=== PATIENT | female | born 1965 | race African-American/Black ===

== ENCOUNTER → 2018-08-13 | Outpatient (CLI) | payer OTHER ==
[~2018-08-13] VITALS: Ht 167.6 cm; Wt 108.0 kg
[~2018-08-13] MED LIST: ASPIR 8181 MG PO; COREG25 MG PO; GLUCOPHAGE XR500 MG PO; HYDRALAZINE 2525 MG PO; IMDUR 30 MG TAB30 M1 PO; LASIX 40 MG TAB40 M2 PO; LEVEMIR FL100 UNIT/2 SUBQ; LISINOPRIL40 MG PO; LOVASTATIN40 MG PO; LYRICA 75 MG CA75 MG PO; PLAVIX 75 MG TA75 M1 PO; SPIRONOLACTONE25 M1 PO; TRULICITY1.5 MG/0.5 SUBQ
[2018-08-13 10:45] VITALS: BP 132/55
== END | disposition home or self-care (01) ==
LOC: SPEC 09:36
DX: I70.248 Atherosclerosis of native arteries of left leg with ulceration of other part of lower leg (principal); L97.929 Non-pressure chronic ulcer of unspecified part of left lower leg with unspecified severity; I70.1 Atherosclerosis of renal artery; I11.0 Hypertensive heart disease with heart failure; I50.9 Heart failure, unspecified; E11.9 Type 2 diabetes mellitus without complications; E78.00 Pure hypercholesterolemia, unspecified; Z98.890 Other specified postprocedural states; Z79.4 Long term (current) use of insulin; Z79.899 Other long term (current) drug therapy

== ENCOUNTER → 2018-11-20 | Outpatient (CLI) | payer OTHER ==
[~2018-11-20] VITALS: Ht 167.6 cm; Wt 108.0 kg
[~2018-11-20] MED LIST changes: +ADULT ASPIRIN R81 MG PO; +GENTAMICIN 0.15 CR TOP; +LISINOPRIL20 MG PO
[2018-11-20 08:20] VITALS: BP 150/57
[2018-11-20 08:24] LABS: HEMATOCRIT 33.4 % (37.0-47.0); HEMOGLOBIN 10.3 gm/dL (12.0-15.0); MCH 21.8 pg (26.0-34.0); MCHC 30.8 g/dL (28.0-37.0); MCV 70.7 fL (80.0-100.0); RBC 4.72 mil/uL (4.20-5.00); RDW 19.6 % (10.5-14.5); WBC 6.4 thou/uL (4.0-11.0)
[2018-11-20 08:33] LABS: ANION GAP 10 mmol/L (7-16); BUN 28 mg/dL (7-18); CALCIUM 10.2 mg/dL (8.5-10.1); CHLORIDE 105 mmol/L (98-107); CO2 23 mmol/L (21-32); CREATININE 1.2 mg/dL (0.6-1.0); GLUCOSE 148 mg/dL (74-106); POTASSIUM 4.3 mmol/L (3.5-5.1); SODIUM 138 mmol/L (136-145)
[2018-11-20 08:37] LABS: APTT 27.5 Seconds (24.5-32.8); PROTIME 10.2 Seconds (9.3-11.4)
[2018-11-20 10:43] LABS: ALBUMIN 3.5 g/dL (3.4-5.0); DIRECT BILIRUBIN < 0.1 mg/dL (<0.1-0.3); SGOT 19 U/L (15-37); SGPT 14 U/L (30-65); TOTAL BILIRUBIN 0.2 mg/dL (<0.1-1.0); TOTAL PROTEIN 8.7 g/dL (6.4-8.2)
--- NOTE | 2018-11-20 18:58 | CATHLAB ---
[facility] [place] [address] INVASIVE PROCEDURE REPORT Name: OLMAN PICHARDO Room #: REG ANETTE Romero#: [id number] Admission: 11/20/18 Attend Phys: Faraz Walker, Discharge: Date of : 63 Date of Service: 11/20/18 1858 Report #: [id number] THIS REPORT FOR: //name// APPROVED REPORT Study performed: 11/20/2018 08:59:53 Patient Details Patient Status: Out-Patient Room #: The patient is a 53 year-old female Event Personnel Faraz Walker Thermal Molder, Bridger Lynch RN RN, nOel Chen RTR Scrub, Vanessa Lopez RTR Monitor, Kayla Bonilla RTR, LOSS PREVENTION/SAFETY DISTRICT MANAGER Monitor, Joey Valenzuela RTR Scrub Procedures Performed Art Access - R femoral artery* Wilmer Access - R femoral vein Right and Left Heart Cath w/or w/o Coronarie [id number] [facility] Aortogram Abdominal Peripheral Angio 084759 Hemostasis w/ Mynx 22459 Initial Mod Sed Same Phys/QHP Gr5y 505204 71469 Mod Sed Same Phys/QHP Ea 552061 Indication Positive stress test Procedure Narrative The Right Groin^ was infiltrated with subcutaneous anesthesia. A PINNACLE 6FR Sheath #[id number] sheath was inserted into the RFA^. Coronary angiography was performed using coronary diagnostic catheters. The right coronary system was accessed and visualized with a JR4 catheter. The left coronary system was accessed and visualized with a JL4 catheter. The left ventricle was accessed and visualized with a Pigtail catheter. Left ventriculogram was performed in 30 degree projection. An aortogram of the abdominal aorta was performed. Pre-demployment femoral angiogram was performed . Closure device was deployed with a Fr MYNX CONTROL 6F/7F #[id number]. Hemostasis was obtained with manual pressure following sheath removal without any complications. The patient tolerated the procedure well and there were no complications associated with the procedure. There was no hematoma. Intraoperative Conscious Sedation Sedation start time: 9:21 Case end Time: 10:[address] [facility] [place] [address] [place] [address] INVASIVE PROCEDURE REPORT Name: OLMAN PICHARDO Room #: JOSE Romero#: [id number] Admission: 11/20/18 Attend Phys: Faraz Walker, Discharge: Date of : 63 Date of Service: 11/20/18 1858 Report #: [id number] Fentanyl 100 mcg Versed 2 mg Fluoro Time: 4.45 minutes Dose: DAP 8666.60 cGycm2 920 mGy Contrast Type and Amount: Visipaque 115 ml Hemodynamics The right atrial mean pressure is 16 mmHg. The right ventricular pressure is 74/2 mmHg. The pulmonary artery pressure is 64/29 mmHg with a mean of 43 mmHg. The mean pulmonary capillary wedge pressure is 33 mmHg. The aortic pressure is 175/67 mmHg with a mean of 68 mmHg. The left ventricular pressure is 172/9 mmHg with a mean of mmHg. The left ventricular end diastolic pressure is 22 mmHg. The cardiac output using thermo method is 4.07 L/min. The cardiac index using thermo method is 1.88 L/min/m2. Conclusion #1 successful right heart catheterization with cardiac output by thermodilution. See above hemodynamics. #2 normal left ventricular size with mid and basilar inferior hypokinesis EF 45% range #3 abdominal aortogram revealing no evidence renal arteries were patent. iliac system patent non-aneurysmal #4 moderate left main calcification mildly disease giving rise to LAD and circumflex distal left main has significant stenosis #5 ostial LAD calcified with significant stenosis remainder vessel is somewhat diseased and calcified. #6 circumflex OM also complex ostial disease involving distal left main calcification is heavy moderate size first and second OM vessels also diffusely diseased #7 dominant RCA is occluded Recommendations plan continue aggressive risk factor modification diuresis due to elevated pulmonary pressures. CV surgical consultation regarding revascularization by bypass. Complex nature of this disease and significant calcification young diabetic female best served with revascularization with arterial grafts. <ELECTRONICALLY SIGNED> By: Faraz Walker MD, FACC 11/20/181857 57 57 Faraz Walker MD, FACC /INF
[2018-11-21 00:07] LABS: GLYCOHEMOGLOBIN (HGB A1C) 6.6 % (4.8-5.6)
--- NOTE | 2018-11-21 18:05 | EKG ---
[facility] [place] [place] [address] ELECTROCARDIOGRAM REPORT Name: OLMAN PICHARDO [facility] [id number] Admission: 11/20/18 Attend Phys: Faraz Walker MD, Discharge: Date of : 63 Report #: [id number] THIS REPORT FOR: //name// [facility] Test Date: 2018-11-20 Test Time: 08:29:39 Pat Name: OLMAN PICHARDO Department: Room: Gender: F Bankruptcy Paralegal: Sebastian HERNANDEZ : 1965 Requested By: Faraz Walker Order Number: [id number] MD: Dl Churchill Measurements Intervals [place] Rate: 56 P: 89 AR: 247 QRS: -21 QRSD: 110 T: -20 QT: 481 QTc: 465 Interpretive Statements Sinus rhythm Prolonged AR interval LVH with IVCD and secondary repol abnrm No previous ECG available for comparison Electronically Signed On 11-21-2018 18:05:14 CDT by Dl Churchill [email or web address] <ELECTRONICALLY SIGNED> By: Dl Churchill MD, [facility] 11/21/18 1805 8 8 Dl Churchill MD, [facility] /EPI
--- NOTE | 2018-11-22 08:09 | HC ---
[facility] [place] [address] CONSULTATION Name: OLMAN PICHARDO Room #: REG REID ParrVerónica#: [id number] Admission: 11/20/18 Attend Phys: Faraz Walker MD, Discharge: Date of : 63 Report #: [id number] THIS REPORT FOR: //name// CC: Faraz Pyle DATE OF SERVICE: 11/20/2018 We were asked by Dr. Walker to see the patient. HISTORY OF PRESENT ILLNESS: The patient is a 53-year-old with 1-month history of shortness of breath. The shortness of breath seems to be exertional, but the exertion is relatively low level such as climbing stairs. The patient denies chest pain to me. There is a history of heart failure approximately 14 years ago. PAST MEDICAL HISTORY: Hypertension, hyperlipidemia, diabetes mellitus. The patient also has been treated for a left great toe ulcer and has had iliac and femoral stents placed in August or September by Dr. Sparrow. The patient is on Plavix in addition to aspirin, carvedilol, Trulicity, Lasix, hydralazine, Imdur, lisinopril, lovastatin, metformin, spironolactone, and gabapentin. ALLERGIES: None known. REVIEW OF SYSTEMS: Largely negative. GENERAL: No weight change, fever. EYES: Wears glasses. No recent vision change. ENT: No hearing loss. No sinus problems. CARDIAC: As mentioned shortness of breath. RESPIRATORY: Denies chronic cough, hemoptysis. GASTROINTESTINAL: No nausea, vomiting, blood. GENITOURINARY: No urgency, frequency, blood. SKIN: No rash or infection. We do note the ulceration, left great toe. MUSCULOSKELETAL: No bone or joint pain. NEUROLOGIC: Peripheral neuropathy positive. Denies motor weakness. HEMATOLOGIC: No anemia, no bruisability. FAMILY HISTORY: Mother in 60s from coronary artery disease, had stent. Father in 40s of enlarged heart. SOCIAL HISTORY: Former smoker, quit in 2003. . No alcohol, no drugs. PHYSICAL EXAMINATION: GENERAL: The patient is lying in bed after the heart cath, appears comfortable. VITAL SIGNS: Blood pressure 150/57, heart rate 56, respiratory rate 13, temperature ____. [facility] [address] [place] [address] CONSULTATION Name[facility] Room #: REG REID Keshav.#: [id number] Admission: 11/20/18 Attend Phys: Faraz Walker MD, Discharge: Date of : 63 Report #: [id number] HEENT: No scleral icterus, no arcus. NECK: No mass. Left cervical bruit audible. CHEST: Clear. HEART: Rhythm regular, no murmur. ABDOMEN: Soft, no mass, no tenderness. EXTREMITIES: Somewhat atrophic, left great toe ulcer bandaged. I do not feel popliteal or distal pulses. PSYCHIATRIC: The patient is very quiet with a bit of a flat affect, but answers questions appropriately and is oriented. SKIN: No other rash or infection. NEUROLOGIC: No obvious motor or sensory dysfunction. MUSCULOSKELETAL: No bone or joint asymmetry or deformity. ASSESSMENT: Cardiac catheterization showed a 3-vessel disease with total occlusion of the right coronary and high-grade LAD and circumflex lesions. Left ventricular function mildly reduced. Echo shows an ejection fraction of 40%. I have reviewed the case with Dr. Walker and in view of the patient's diabetes, we recommend coronary artery bypass surgery. The risks and details of this were discussed. Options and alternatives were reviewed. Risks include but are not limited to bleeding, infection, anesthesia risks, heart and lung problems, stroke and . The patient understands all of this and wishes to proceed. We will try to arrange surgery for next . Thank you for the consult. <ELECTRONICALLY SIGNED> By: Cody Murrieta MD 11/22/18 0809 1442 0210 Cody Murrieta MD /nt
== END | disposition home or self-care (01) ==
LOC: CATH 07:43
PROVIDERS: Internal Medicine Cardiovascular Disease; Surgery Vascular Surgery
DX: I25.10 Atherosclerotic heart disease of native coronary artery without angina pectoris (principal); I65.23 Occlusion and stenosis of bilateral carotid arteries; I11.0 Hypertensive heart disease with heart failure; I50.9 Heart failure, unspecified; I42.9 Cardiomyopathy, unspecified; E11.9 Type 2 diabetes mellitus without complications; I73.9 Peripheral vascular disease, unspecified; E78.00 Pure hypercholesterolemia, unspecified; E66.09 Other obesity due to excess calories; Z79.4 Long term (current) use of insulin; Z87.891 Personal history of nicotine dependence; Z98.890 Other specified postprocedural states; Z79.899 Other long term (current) drug therapy; Z01.818 Encounter for other preprocedural examination

== ENCOUNTER 2018-11-27 05:55 | Inpatient (IN) | payer OTHER ==
[2018-11-21 14:56] LABS: ABSOLUTE NEUTROPHILS 4.3 thou/uL (1.4-8.2); BASOPHILS 0.3 % (0.0-2.0); HEMATOCRIT 32.5 % (37.0-47.0); HEMOGLOBIN 10.3 gm/dL (12.0-15.0); LYMPHOCYTES 25.1 % (24.0-44.0); MCH 22.1 pg (26.0-34.0); MCHC 31.6 g/dL (28.0-37.0); MCV 69.9 fL (80.0-100.0); MONOCYTES 7.5 % (1.0-8.0); PLATELET COUNT 315 thou/uL (150-400); POLYS 65.1 % (36.0-66.0); RBC 4.65 mil/uL (4.20-5.00); RDW 19.9 % (10.5-14.5); WBC 6.5 thou/uL (4.0-11.0)
[2018-11-21 14:57] LABS: URINE BILIRUBIN NEGATIVE (Negative); URINE BLOOD NEGATIVE (Negative); URINE CLARITY CLEAR; URINE COLOR YELLOW; URINE GLUCOSE-RANDOM* NEGATIVE (Negative); URINE KETONES NEGATIVE (Negative); URINE LEUKOCYTES-REFLEX NEGATIVE (Negative); URINE NITRITE-REFLEX NEGATIVE (Negative); URINE PROTEIN (DIPSTICK) NEGATIVE (Negative); URINE UROBILINOGEN 0.2 E.U./dl (0.2-1.0)
[2018-11-21 15:16] LABS: ANISOCYTOSIS 1+; HYPOCHROMASIA 1+; MICROCYTES 1+
[~2018-11-27] VITALS: Ht 167.6 cm; Wt 107.7 kg
[~2018-11-27 05:55] MED LIST changes: -GENTAMICIN 0.15 CR TOP
[2018-11-27 07:50] VITALS: BP 115/94
[2018-11-27 13:57] LABS: MCH 22.2 pg (26.0-34.0); WBC 4.8 thou/uL (4.0-11.0)
[2018-11-27 13:58] LABS: MCHC 31.5 g/dL (28.0-37.0); MCV 70.5 fL (80.0-100.0); RBC 2.69 mil/uL (4.20-5.00); RDW 18.8 % (10.5-14.5)
[2018-11-27 14:00] LABS: HEMATOCRIT 18.9 % (37.0-47.0)
[2018-11-27 14:12] LABS: APTT 25.9 Seconds (24.5-32.8); FIBRINOGEN 195.4 mg/dL (210-360); PROTIME 15.4 Seconds (9.3-11.4)
[2018-11-27 14:13] LABS: INR 1.5
[2018-11-27 14:55] LABS: POC BE -2 mmol/L (-2.0 to +3.0); POC CA IONIZED 4.6 mg/dL (4.5-5.3); POC GLUCOSE 137 mg/dL (70-99); POC HCO3 23.3 mmol/L (22.0-26.0); POC HEMOGLOBIN 6.8 g/dL (12.0-15.0); POC POTASSIUM 4.4 mmol/L (3.5-5.1); POC SODIUM 142 mmol/L (136-145); POC pCO2 40.4 mmHg (35.0-45.0); POC pH 7.369 (7.360-7.450)
[2018-11-27 14:55] LABS: POC BE -1 mmol/L (-2.0 to +3.0); POC CA IONIZED 4.8 mg/dL (4.5-5.3); POC GLUCOSE 114 mg/dL (70-99); POC HCO3 25.3 mmol/L (22.0-26.0); POC HEMOGLOBIN 8.2 g/dL (12.0-15.0); POC POTASSIUM 4.1 mmol/L (3.5-5.1); POC SODIUM 145 mmol/L (136-145); POC pCO2 50.9 mmHg (35.0-45.0); POC pH 7.305 (7.360-7.450)
[2018-11-27 14:55] LABS: POC BE 2 mmol/L (-2.0 to +3.0); POC CA IONIZED 5.3 mg/dL (4.5-5.3); POC GLUCOSE 134 mg/dL (70-99); POC HCO3 25.6 mmol/L (22.0-26.0); POC HEMOGLOBIN 6.8 g/dL (12.0-15.0); POC POTASSIUM 3.8 mmol/L (3.5-5.1); POC SODIUM 146 mmol/L (136-145); POC pH 7.472 (7.360-7.450)
[2018-11-27 14:55] LABS: POC BE -1 mmol/L (-2.0 to +3.0); POC CA IONIZED 4.7 mg/dL (4.5-5.3); POC GLUCOSE 135 mg/dL (70-99); POC HCO3 23.6 mmol/L (22.0-26.0); POC HEMOGLOBIN 7.8 g/dL (12.0-15.0); POC POTASSIUM 4.1 mmol/L (3.5-5.1); POC SODIUM 146 mmol/L (136-145); POC pCO2 39.5 mmHg (35.0-45.0); POC pH 7.385 (7.360-7.450)
[2018-11-27 14:55] LABS: POC BE 0 mmol/L (-2.0 to +3.0); POC CA IONIZED 4.9 mg/dL (4.5-5.3); POC GLUCOSE 84 mg/dL (70-99); POC HCO3 24.7 mmol/L (22.0-26.0); POC HEMOGLOBIN 9.2 g/dL (12.0-15.0); POC POTASSIUM 3.4 mmol/L (3.5-5.1); POC SODIUM 145 mmol/L (136-145); POC pCO2 38.1 mmHg (35.0-45.0); POC pH 7.419 (7.360-7.450)
[2018-11-27 14:55] LABS: POC BE -3 mmol/L (-2.0 to +3.0); POC CA IONIZED 4.9 mg/dL (4.5-5.3); POC GLUCOSE 124 mg/dL (70-99); POC HCO3 21.1 mmol/L (22.0-26.0); POC HEMOGLOBIN 8.8 g/dL (12.0-15.0); POC POTASSIUM 3.8 mmol/L (3.5-5.1); POC SODIUM 147 mmol/L (136-145); POC pCO2 31.2 mmHg (35.0-45.0); POC pH 7.438 (7.360-7.450)
[2018-11-27 14:55] LABS: POC BE -1 mmol/L (-2.0 to +3.0); POC CA IONIZED 5.1 mg/dL (4.5-5.3); POC GLUCOSE 141 mg/dL (70-99); POC HCO3 25.1 mmol/L (22.0-26.0); POC HEMOGLOBIN 9.9 g/dL (12.0-15.0); POC SODIUM 144 mmol/L (136-145); POC pH 7.325 (7.360-7.450)
[2018-11-27 14:55] LABS: POC BE -4 mmol/L (-2.0 to +3.0); POC CA IONIZED 4.6 mg/dL (4.5-5.3); POC GLUCOSE 102 mg/dL (70-99); POC HEMOGLOBIN 8.2 g/dL (12.0-15.0); POC POTASSIUM 4.2 mmol/L (3.5-5.1); POC SODIUM 143 mmol/L (136-145); POC pCO2 39.7 mmHg (35.0-45.0); POC pH 7.352 (7.360-7.450)
[2018-11-27 14:55] LABS: POC BE 1 mmol/L (-2.0 to +3.0); POC CA IONIZED 4.6 mg/dL (4.5-5.3); POC GLUCOSE 124 mg/dL (70-99); POC HCO3 25.1 mmol/L (22.0-26.0); POC HEMOGLOBIN 7.5 g/dL (12.0-15.0); POC POTASSIUM 4.1 mmol/L (3.5-5.1); POC SODIUM 145 mmol/L (136-145); POC pCO2 38.7 mmHg (35.0-45.0); POC pH 7.421 (7.360-7.450)
[2018-11-27 15:10] VITALS: BP 99/47
[2018-11-27 15:11] VITALS: BP 99/47
[2018-11-27 15:27] LABS: HEMATOCRIT 29.5 % (37.0-47.0); HEMOGLOBIN 9.3 gm/dL (12.0-15.0); MCH 23.3 pg (26.0-34.0); MCHC 31.6 g/dL (28.0-37.0); MCV 73.7 fL (80.0-100.0); RBC 4.01 mil/uL (4.20-5.00); RDW 21.8 % (10.5-14.5); WBC 12.8 thou/uL (4.0-11.0)
[2018-11-27 15:34] LABS: CALCIUM 8.6 mg/dL (8.5-10.1); CREATININE 1.3 mg/dL (0.6-1.0); MAGNESIUM 2.6 mg/dL (1.8-2.4); POTASSIUM 4.2 mmol/L (3.5-5.1)
--- NOTE | 2018-11-27 15:36 | NUR ---
Nutrition: CABG x 5 today. Consult received. Will followup when out of ICU and closer to D/C to determine education needs.
[2018-11-27 15:41] LABS: APTT 27.8 Seconds (24.5-32.8); INR 1.2; PROTIME 12.3 Seconds (9.3-11.4)
[2018-11-27 16:00] VITALS: BP 105/56
[2018-11-27 16:09] LABS: BE(vivo) -5.6 mmol/L (-2 to +3); HCO3 17.9 mmol/L (22.0-26.0); PCO2 28.5 mmHg (35.0-45.0); PO2 94.1 mmHg (80.0-100.0); pH 7.415 (7.360-7.450); sO2 97.4 % (92.0-98.0)
--- NOTE | 2018-11-27 19:21 | NUR ---
1510-FROM OR W OPEN HEART CREW, IN ATTENDANCE.SEE [facility] FOR VS,SIG EVENTS,GTT TITRATIONS,HRLY OUTPUTS.--VW 1830-INITIAL POST OP LABS CANCELLED BY LAB. 4 HR REPEAT HGB SENT EARLY-HGB 8.[address] DRAINAGE.GOOD UOP. STARTING TO BE MORE AWAKE,NODS HEAD SLIGHTLY TO YES/NO ?'S.CARE TURNED OVER TO ONCOMING RN.--VW
[2018-11-27 22:30] LABS: BE(vivo) -3.5 mmol/L (-2 to +3); HCO3 18.9 mmol/L (22.0-26.0); PCO2 25.4 mmHg (35.0-45.0); PO2 189.5 mmHg (80.0-100.0); pH 7.489 (7.360-7.450); sO2 99.4 % (92.0-98.0)
[2018-11-27 23:02] LABS: BE(vivo) -6.1 mmol/L (-2 to +3); PCO2 35.9 mmHg (35.0-45.0); PO2 124.9 mmHg (80.0-100.0); pH 7.341 (7.360-7.450); sO2 98.3 % (92.0-98.0)
[2018-11-28 00:17] LABS: BE(vivo) -4.8 mmol/L (-2 to +3); HCO3 20.5 mmol/L (22.0-26.0); pH 7.339 (7.360-7.450); sO2 96.9 % (92.0-98.0)
[2018-11-28 06:12] LABS: HEMATOCRIT 25.7 % (37.0-47.0); HEMOGLOBIN 8.2 gm/dL (12.0-15.0); MCH 23.8 pg (26.0-34.0); MCHC 32.1 g/dL (28.0-37.0); MCV 74.1 fL (80.0-100.0); RBC 3.47 mil/uL (4.20-5.00); RDW 21.8 % (10.5-14.5)
[2018-11-28 06:22] LABS: CALCIUM 8.6 mg/dL (8.5-10.1); CREATININE 1.3 mg/dL (0.6-1.0)
--- NOTE | 2018-11-28 07:00 | NUR ---
Pt progressing slowly but with stable VS and SpO2 adequate on 2L of O2. Chest tube drainage minimal and urine output remains adequate for shift. PRN fentanyl given for c/o chest "soreness" with desired effect achieved. Taking PO ice chips with no c/o nausea. Am lab results noted, continue with POC.
--- NOTE | 2018-11-28 10:20 | NUR ---
CM ASSESSMENT: CASE OPENED FOR DC PLANNING. CLINICAL INFO REVIEWED. PT IS POD #1 CABG AND UP IN CHAIR EASILY AROUSABLE BUT SOMULENT. PT'S Annetta NGUYEN PRIMERS AT BEDSIDE. INFO OBTAINED FROM PT AND PATRICK. THEY LIVE TOGETHER IN HOUSE. 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 NO PREVIOUS HOME HEALTH. PT AND OT WILL EVAL TODAY AND CM AVAILABLE TO ASSIST WITH COORDINATION OF DC NEEDS. LIKELY HOME NO NEEDS BUT WILL FOLLOW THERAPY RECOMMENDATIONS.
[2018-11-28 11:07] VITALS: BP 92/50
[2018-11-28 12:00] VITALS: BP 102/50
--- NOTE | 2018-11-28 12:41 | NUR ---
PATIENT WAS IN BED THIS MORNING, DROWSY BUT EASILY AROUSABLE, SLOW TO RESPOND. VITALS STABLE. LINES DOCUMENTED. UP TO THE CHAIR WITH ASSISTANCE FROM P.T AND O.T AND [address] RNs[address] CHEST TUBES IN PLACE. MEDICATED FOR PAIN WITH PRN PAIN PILL. PATIENT OCCASIONALLY MOANS. RENITA CAME OUT PATIENT WAS BEING REPOSITIONED IN THE CHAIR. SLOWLY PROGRESSING WITH POC GOALS.
--- NOTE | 2018-11-28 15:08 | EKG ---
[facility] [place] [address] ELECTROCARDIOGRAM REPORT Name: OLMAN PICHARDO Room #: 236-P ADM IN M.R.#: [id number] Admission: 11/27/18 Attend Phys: Cody Murrieta MD Discharge: Date of : 63 Report #: [id number] THIS REPORT FOR: //name// [facility] Test Date: 2018-11-27 Test Time: 17:18:34 Pat Name: OLMAN PICHARDO Department: Room: 236 Gender: F Big Data Developer: Lisy NEWMAN : 1965 Requested By: Taqueria Choudhury Order Number: [id number] MD: Dl Churchill Measurements Intervals [place] Rate: 96 P: 248 MI: 167 QRS: -40 QRSD: 145 T: -62 QT: 434 QTc: 549 Interpretive Statements Sinus or ectopic atrial rhythm with first-degree AV block Right bundle branch block Inferior infarct, old Compared to ECG 11/20/2018 08:29:39 Ectopic atrial rhythm now present Right bundle-branch block now present nonspecific change in the ST and T-wave segments Voltage criteria for LVH no longer present Inferior Q waves are more prominent Electronically Signed On 11-28-2018 15:08:01 CDT by Dl Churchill [email or web address] <ELECTRONICALLY SIGNED> By: Dl Churchill MD, [facility] 11/28/18 1508 1718 Dl Churchill MD, [facility] /EPI
--- NOTE | 2018-11-28 15:09 | EKG ---
[place] [address] [facility] [place] [address] ELECTROCARDIOGRAM REPORT Name: OLMAN PICHARDO Room #: 236-P ADM IN M.R.#: [id number] Admission: 11/27/18 Attend Phys: Cody Murrieta MD Discharge: Date of : 63 Report #: [id number] THIS REPORT FOR: //name// [facility] Test Date: 2018-11-28 Test Time: 07:13:07 Pat Name: OLMAN PICHARDO Department: Room: 236 P Gender: F Language Asst: SHIMA : 1965 Requested By: Taqueria Choudhury Order Number: [id number] MD: Dl Churchill Measurements Intervals [place] Rate: 70 P: 90 IL: 221 QRS: -20 QRSD: 157 T: -18 QT: 479 QTc: 517 Interpretive Statements Sinus rhythm Prolonged IL interval Right bundle branch block Inferior infarct, age indeterminate Prolonged QT interval Compared to ECG 11/20/2018 08:29:39 ST segment abnormality is less pronounced Electronically Signed On 11-28-2018 15:09:30 CDT by Dl Churchill [email or web address] <ELECTRONICALLY SIGNED> By: Dl Churchill MD, [facility] 11/28/18 1509 2 2 Dl Churchill MD, [facility] /EPI
[2018-11-28] MEDS ORDERED: GENTAMICIN 0.15 CR TOP (15:10)
[2018-11-28 16:00] VITALS: BP 98/47
[2018-11-28 20:00] VITALS: BP 103/51
[2018-11-29] VITALS: BP 115/57
[2018-11-29 04:00] VITALS: BP 119/58
--- NOTE | 2018-11-29 04:44 | NUR ---
ASSUMED CARE OF PT. AT 1900. PT. VITAL SIGNS STABLE. MORE ALERT THIS SHIFT, STILL DROWSY AND SLOW AT TIMES. CAN ANSWER QUESTIONS APPROPRIATELY. PAIN CONTROLLED, ONLY ONE DOSE OF FENTANYL GIVEN AT BEGINNING OF SHIFT. CHEST TUBE SITES C/D/I. ART LINE REMAINS IN PLACE. POOR URINARY OUTPUT, 100CC FOR THE SHIFT. PT. ASSISTED WITH TURN, COUGH, DEEP BREATH AND IS. NEEDS MORE PRACTICE AND REMINDERS. PT. HAS SLEPT THROUGH MOST OF THE NIGHT. ASSESSMENTS AND VITAL SIGNS CHARTED. PT. IS PROGRESSING TOWARDS GOALS. WILL CONTINUE TO MONITOR.
[2018-11-29 05:42] LABS: HEMOGLOBIN 7.7 gm/dL (12.0-15.0); MCH 23.7 pg (26.0-34.0); MCHC 31.9 g/dL (28.0-37.0); MCV 74.2 fL (80.0-100.0); RBC 3.24 mil/uL (4.20-5.00); RDW 22.2 % (10.5-14.5); WBC 11.1 thou/uL (4.0-11.0)
[2018-11-29 05:55] LABS: CALCIUM 8.5 mg/dL (8.5-10.1); CREATININE 1.5 mg/dL (0.6-1.0)
[2018-11-29 08:00] VITALS: BP 119/54
--- NOTE | 2018-11-29 08:19 | NUR ---
Pt alert, oriented x 4. Slow response. C/O pain, 6/10. Fentanyl was given per order. Encouraged to use IS. Pt tried IS, reaching 500 due to pain. Night nurse reported pt held Urine >500. Urinary catheter was inserted. Pulse on LE was weak. Used doppler. Chest tube and wound vac are in place w/o air leaking. Will continue to monitor.
[2018-11-29 12:00] VITALS: BP 128/60
--- NOTE | 2018-11-29 12:15 | O ---
[facility] [place] [address] OPERATIVE REPORT Name: OLMAN PICHARDO Room #: 236-P ADM IN M.R.#: [id number] Admission: 11/27/18 Attend Phys: Cody Murrieta MD Discharge: Date of : 63 Report #: [id number] THIS REPORT FOR: //name// CC: Cody Pyle DATE OF SERVICE: 11/27/2018 PREOPERATIVE DIAGNOSIS: Coronary artery disease. POSTOPERATIVE DIAGNOSIS: Coronary artery disease. OPERATION: Coronary artery bypass x 5 including left internal mammary artery to left anterior descending artery and saphenous vein in Y fashion with one branch going to posterior descending artery and one branch going to diagonal, first marginal, and second marginal artery and endoscopic harvest left greater saphenous vein. SURGEON: Cody Murrieta MD EVENT STAFF: JESSICA Alvarez. ANESTHESIA: General. INDICATIONS: The patient is a 53-year-old with coronary artery disease. Catheterization demonstrates severe and diffuse coronary disease that has the appearance of diabetic vessels in addition to having important proximal stenosis. Left ventricular function is moderately reduced with ejection fraction in the 40-45% range. FINDINGS AND TECHNIQUE: After general anesthesia was established, saphenous vein was harvested using an endoscopic approach and prepared for use as a conduit. Exposure was obtained through median sternotomy. Left internal mammary artery was harvested from chest wall. Pericardial well was made. Cannulation sutures were placed. Heparin was given. Aorta was cannulated. Right atrium was cannulated. Cardioplegia needle was positioned in the aortic root. Retrograde cardioplegic catheter was placed in coronary sinus. Cardiopulmonary bypass was established. The aorta was cross clamped antegrade, then retrograde cardioplegia were given. Ice was poured in the pericardial well. The heart was stopped. During electromechanical arrest, the distal anastomoses were performed and end-to-side anastomosis was made between vein and the posterior descending artery. This was a small vessel measuring 1.2 mm. Cold cardioplegia was given. [facility] [address] [place] [address] OPERATIVE REPORT Name: OLMAN PICHARDO Room #: 236-P [facility] IN M.R.#: [id number] Admission: 11/27/18 Attend Phys: Cody Murrieta MD Discharge: Date of : 63 Report #: [id number] A separate segment of vein was sewn in end-to-side fashion to the second marginal artery. This was a diffusely calcified vessel, but internally it measured 1.7 mm. Cold cardioplegia was given. The same segment of vein was sewn in wjgu-hn-znbe fashion to the first marginal artery. Once again, this was intensively calcified and measured approximately 1.5 mm. Cold cardioplegia was given. The same segment of vein was sewn in wday-nd-imuk fashion to first diagonal. This was diffusely diseased and calcified vessel that measured 1.6 mm. Cold cardioplegia was given. Left internal mammary artery was sewn end-to-side fashion to left anterior descending artery. The LAD was a 1.5 mm vessel that were bypassed, but it was severely and diffusely calcified and was probably the most disease of all of the distal vessels. Cold cardioplegia was given. After the anastomosis was complete, the anastomosis was checked with the Doppler after completion. Cold cardioplegia was given. One proximal anastomosis was performed. The proximal end of the vein to the PDA was sewn to the aorta. At this point, warm retrograde cardioplegia was given followed by warm continuous blood. When the infusion was complete, the crossclamp was removed. De-airing maneuvers were performed. The anastomoses were inspected and found to be satisfactory. At this point, the proximal end of the vein to the left heart was sewn to the side of the vein to the right heart. This Y fashion was done because the vein to the left side of the heart was a bit short due to a harvesting issue. When the anastomosis was complete, flow was established through all of the grafts and the anastomoses were inspected once again. As the patient warmed, nice cardiac activity resumed. Chest tubes and pacing wires were placed. A marker was placed around the proximal anastomosis. When the patient was warmed, she was weaned from cardiopulmonary bypass. Venous cannula was removed. Protamine was given. The aortic cannula was removed. Flows were measured in the bypass grafts. When hemostasis was satisfactory, chest was irrigated with antibiotic solution and closed in the usual fashion. The patient was taken to the Intensive Care Unit in good condition having tolerated the procedure well. All counts reported as correct. <ELECTRONICALLY SIGNED> By: Cody Murrieta MD 11/29/18 1215 1651 1724 Cody Murrieta MD /nt
--- NOTE | 2018-11-29 15:10 | NUR ---
Pt has sit on chair since 944 upto 1315. Pt returned to bed. Gait was steady with 3 person assist due to lines. Pt's IS trial wasn't great; could not reach to 1000 yet. Pt c/o LLOYD. [place] was administered prior to transfer to bed. Pt's appetite was not great; ate only 25% out of tray, each time. The family member encouraged pt to take more but pt refused taking more. BP has been between 110s to 140s. A-line still in place. 1 degree AVB and RBBB on monitor. RIJ is still in place. Will discontinue when the other resource RNs are available.
[2018-11-29 16:00] VITALS: BP 132/60
[2018-11-29 20:00] VITALS: BP 120/55
[2018-11-30] VITALS (14 sets, daily range): BP systolic 96–133; BP diastolic 39–96
--- NOTE | 2018-11-30 04:28 | NUR ---
Pt awoke with severe back spasm. Wanted to get into chair to relieve back pain. Up to chair with assist x2. O2 desaturated to 86% due to pt hyperventilating. Coached pt to breathe more slowly, pain med given, and oxygen turned up to 4 L. Pain under control at this time; sat 91% on 4 L, monitor remains sinus rhythm, left plural CT patent, no air leak or crepitus.
--- NOTE | 2018-11-30 04:46 | NUR ---
PT CURRENTLY RESTING IN BED. PT SR W/BBB/1ST DEGREE AVB. PT CONTINUES TO NEED ENCOURAGEMEMT FOR CDB AND USING HER IS. DISCUSSED IN DEPTH THE PURPOSE OF AND IN HER PROGRESSION OF RECOVERY. PT V/U. REMAINS ON 2L NC. PT HAS TAKEN ONE PAIN MED FOR ME TONIGHT. PT LEFT CT IN TACT. MED SITES CDI DRESSING. PACER WIRES INTACT AND COVERED. LEFT LEG GRAFT SITE DRESSING CDI. MIDLINE STERNUM SITE WITH W/V IN PLACE. WILL GET PT UP OUT OF BED IN THE NEXT HOUR.
--- NOTE | 2018-11-30 19:23 | NUR ---
PT TO HAVE RT INTRODUCER REMOVED AND NEEDING IV ACCESS. RUABRACHIAL MIDLINE PLACED. PLEASE SEE INSERTION NOTE FOR DETAILS
--- NOTE | 2018-11-30 19:30 | NUR ---
SHIFT SUMMARY: PAIN MEDS- HYDROCODONE 1 PO GIVEN FOR STERNAL PAIN RESULTING IN HER BEING VERY DROWSY. ENCOURAGED PT TO MOVE ALL HER EXTREMITIES, TO USE INCENTIVE SPIROMETER, TO DEEP BREATH AND COUGH WHILE SPLINTING HEART PILLOW, TO FEED HERSELF. PROGRESSIVELY COUGHED UP YELLOW THICK, THEN CLEAR THIN SECRETIONS. SHALLOW BREATHS PROGRESSED TO MODERATE BREATHS. SR WITH FIRST DEGREE AV BLOCK, BBB. PCT WITH MINIMAL AMOUNT DRAINAGE. TOLERATING SMALL AMOUNT OF MEALS, VOIDING PER TOILET. PT UP IN CHAIR IN AM FOR SEVERAL HOURS, BACK TO BED FOR NAP. UP TO TOILET, THEN AMBULATED AROUND THE BED IN ROOM WITH ASSISTANCE OF PHYSICAL THERAPY AND 2 RNS. SIGNIFICANT OTHER PRESENT IN ROOM, PROVIDING SUPPORT TO PT, VERY ATTENTIVE AND HELPFUL. MIDLINE PLACED JUST PRIOR TO SHIFT CHANGE. VERY SLOWLY PROGRESSING. THEN
[2018-12-01] VITALS (13 sets, daily range): BP systolic 109–134; BP diastolic 42–53
--- NOTE | 2018-12-01 04:48 | NUR ---
ASSESSMENT CHARTED. VSS. PT C/O MIDSTERNAL PAIN CONTROLED WITH PRN TYLENOL. FAMILY AT BEDSIDE MOST OF NIGHT. X2 ASSIST TO TOILET 500 OUT. 2 L N/C DIMINISHED. IS UP TO 500-600. GOOD PRODUCTIVE COUGH. WOUND VACC CDI NO OUT. MIDSTERNAL, PACER WIRE, HARVEST SITE DRESSINGS CDI. Q2 TURNS. METOPRLOL HELD DUE TO LOW BP HR. D/C R NECK INTRODUCER. NUNU MIDLINE PLACED DURNING SHIFT REPORT. PLAN FOR LABS AND EKG THIS AM.
[2018-12-01 05:52] LABS: HEMATOCRIT 22.4 % (37.0-47.0); HEMOGLOBIN 7.3 gm/dL (12.0-15.0); MCHC 32.5 g/dL (28.0-37.0); MCV 73.9 fL (80.0-100.0); RBC 3.04 mil/uL (4.20-5.00); RDW 21.3 % (10.5-14.5); WBC 8.7 thou/uL (4.0-11.0)
[2018-12-01 06:01] LABS: CALCIUM 8.4 mg/dL (8.5-10.1); CREATININE 1.2 mg/dL (0.6-1.0); POTASSIUM 3.8 mmol/L (3.5-5.1)
--- NOTE | 2018-12-01 08:04 | EKG ---
[place] [address] [address] [employer] [facility] [place] [address] ELECTROCARDIOGRAM REPORT Name: OLMAN PICHARDO Room #: 236-P ADM IN M.R.#: [id number] Admission: 11/27/18 Attend Phys: Cody Murrieta MD Discharge: Date of : 63 Report #: [id number] THIS REPORT FOR: //name// [facility] Test Date: 2018-12-01 Test Time: 07:13:03 Pat Name: OLMAN PICHARDO Department: Room: 236 P Gender: F Mask Former: SHIMA : 1965 Requested By: Taqueria Choudhury Order Number: [id number] MD: Dl Churchill Measurements Intervals [place] Rate: 56 P: 43 IN: 208 QRS: -38 QRSD: 160 T: 45 QT: 531 QTc: 513 Interpretive Statements Sinus rhythm Borderline prolonged IN interval Right bundle branch block Inferior infarct, age indeterminate Prolonged QT interval Compared to ECG 11/28/2018 07:13:07 QT interval has lengthened Electronically Signed On 12-01-2018 8:04:00 CDT by Dl Churchill [email or web address] <ELECTRONICALLY SIGNED> By: Dl Churchill MD, [facility] 12/01/18 0804 2 2 Dl Churchill MD, [facility] /EPI
--- NOTE | 2018-12-01 11:25 | NUR ---
PATIENT ASSESSMENT AND VITAL SIGNS DOCUMENTED. SHE WAS HELPED TO THE CHAIR WITH ASSISTANCE X2. SHE EXPRESSED PAIN, TYLENOL GIVEN. SHE IS VERY SLOW TO RESPOND. REPORT GIVEN BY ANOTHER RN FOR CONTINUATION OF CARE ON .
--- NOTE | 2018-12-01 12:15 | NUR ---
PT CARE ASSUMED APPROX 1115 ON TRANFER FROM ICU. PT ALERT AND ORIENTED X4. DENIES SOA. REPORTED STERNAL PAIN AT ACCEPTABLE LEVEL AT THAT TIME. VSS. SR ON HAND SHOE CUTTER. PHYSICIAN RETAIL PHARMACY TECHNICIAN CAME TO BEDSIDE AND REMOVED CHEST TUBE AND PACER WIRES. PT TOLERATED WELL. POST CHEST TUBE XRAY COMPLETED PORTABLE AND REVIEWED BY PA. BEDREST COMPLETED AT THIS TIME AND PT REPORTS THAT SHE WILL TRANSFER TO RECLINER ONCE LUNCH TRAY ARRIVES. WOUND CARE TO LEFT 1ST COMPLETED. APPEARS SLIGHTLY MACERATED. WILL NOTIFY DR AND/OR WOUND CARE TEAM. AT BEDSIDE AT THIS TIME. BOTH PT AND DENY QUESTIONS OR CONCERNS REGARDING POC.
--- NOTE | 2018-12-01 18:43 | NUR ---
ASSUMMED PT CARE AT [facility] 1030. PT A&O X4. PT'S VITALS STABLE. PT'S BLOOD SUGARS STABLE. ASSESSMENT CHARTED. FALL PRECAUTIONS IN PLACE. PT COMPLAINED 4/10 PAIN ON STERNAL AREA. PT'S PAIN DECREASED WITH ANALGESICS. PT ON 2 L O2 NC. PT RECIEVED CARE ON HER R TOE DIABETIC ULCER. PT AMBULATED WITH ASSIST X2. PT IS WEAK AND UNSTEADY WHEN AMBULATING. PT BECAME FATIGUED AFTER AMBULATING. PT'S SPOUSE AND FAMILY VISITED. FAMILY AND SPOUSE EDUCATED ABOUT PT'S STATUS. PT AND FAMILY DENIED FURTHER QUESTIONS. PT'S CHEST TUBE AND EPICARDIAL PACING DC. ALL DRESSINGS ARE C/D/I. PT VOIDED MULTIPLE TIMES. HAT MISPLACED WHICH CAUSED MISSED MEASUREMENTS.
[2018-12-02 04:45] VITALS: BP 110/46; BP 96/45
--- NOTE | 2018-12-02 05:37 | NUR ---
ASSESSMENT DOCUMENTED.PT A/OX4.VSS.S/P CABGX5,POD#6.MAX ASSIST WITH TRANSFER TO BR.PAIN MEDS GIVEN FOR STERNAL PAIN WITH RELIEF.STERNAL DRESSING INTACT,WOUND VAC IN PLACE.ON O2 AT 2LITERS PNC.SATS ADEQUATE.LEFT LEG HARVEST SITE DRESSING CDI.PT DENIES ANY OTHER NEEDS AT THIS TIME. AT [facility].
[2018-12-02 05:38] LABS: HEMATOCRIT 22.8 % (37.0-47.0); HEMOGLOBIN 7.3 gm/dL (12.0-15.0); MCH 23.8 pg (26.0-34.0); MCHC 31.9 g/dL (28.0-37.0); MCV 74.5 fL (80.0-100.0); RBC 3.06 mil/uL (4.20-5.00); RDW 21.7 % (10.5-14.5); WBC 8.3 thou/uL (4.0-11.0)
[2018-12-02 07:45] VITALS: BP 130/52
--- NOTE | 2018-12-02 10:52 | NUR ---
Nutrition: Pt transferred to CCU POD 10 CABG. Addressed education needs-pt states she will read materials and contact RD if ?s. On cardiac diet but hx DM.BG 157-208. A1C 6.6-add carb controlled. Ensure is ordered BID, will change to glucerna. Pt has been drinking the supplements and eating 25-75% of meals. No recent weight changes. Place as low risk for now.
[2018-12-02 11:36] VITALS: BP 118/50
--- NOTE | 2018-12-02 15:24 | NUR ---
met with patient and discussed dc planning. Discussed 5N acute rehab and skilled vs HH. Left skilled list for [facility] in room. 5N to eval. Bed status on 5N may be issue.
[2018-12-02 16:45] VITALS: BP 145/60
--- NOTE | 2018-12-02 18:00 | NUR ---
ASSESSMENT CHARTED. PT ALERT AND ORIENTED. VSS. RECEIVED PRN PAIN MED FOR STERNUM AND LEFT KNEE PAIN WITH PARTIAL RELIEF. UP IN THE CHAIR THIS SHIFT. WOUND VAC INTACT. NO CARDIAC OR RESPIRATORY DISTRESS NOTED. CONSULT CALLED IN TO REHAB [facility]. PT PROGRESSING SLOWLY TOWARDS DISCHARGE GOAL. WILL CONTINUE TO MONITOR.
[2018-12-02 19:56] VITALS: BP 136/65
[2018-12-03 00:15] VITALS: BP 131/55
[2018-12-03 04:45] VITALS: BP 134/55
--- NOTE | 2018-12-03 04:57 | NUR ---
PATIENTS CARE WAS ASSUMED AT SHIFT CHANGE. PATIENT WAS ASSESSED AND MEDS WERE PASSED. PATIENT AND FAMILY MEMBER REPORTED SEEING COCKROCHES AND OTHER BUGS IN THIER ROOM. PATIENT WAS THEN MOVED TO 211 FROM 206. HOURLY ROUNDING WAS DONE. THE BED ALARM IS ON. THE BED IS IN A LOW AND LOCKED POSITION.
[2018-12-03 05:52] LABS: HEMATOCRIT 22.9 % (37.0-47.0); HEMOGLOBIN 7.3 gm/dL (12.0-15.0); MCH 23.6 pg (26.0-34.0); MCV 73.8 fL (80.0-100.0); RBC 3.1 mil/uL (4.20-5.00); RDW 21.5 % (10.5-14.5); WBC 8.6 thou/uL (4.0-11.0)
[2018-12-03 06:05] LABS: CALCIUM 8.8 mg/dL (8.5-10.1); MAGNESIUM 2.5 mg/dL (1.8-2.4); POTASSIUM 3.9 mmol/L (3.5-5.1)
[2018-12-03 07:15] VITALS: BP 136/49
[2018-12-03 07:43] VITALS: BP 136/49
[2018-12-03] MEDS ORDERED: FERREX 150 PLU1 EAC1 PO (09:59)
[2018-12-03] MEDS ORDERED: ALBUTEROL2.5 MG/0.5 INH (09:59)
[2018-12-03] MEDS ORDERED: LOPRESSOR25 PO (10:03)
[2018-12-03] MEDS ORDERED: PEPCID20 MG PO (10:04)
[2018-12-03] MEDS ORDERED: NOVOLOG100 UNIT/1 SUBQ (10:05)
[2018-12-03] MEDS ORDERED: MELATONIN1 MG PO (10:06)
--- NOTE | 2018-12-03 10:22 | NUR ---
AUTHORIZATION FOR ACUTE REHAB STAY REQUESTED FROM [facility] AT [phone]. INFORMATION FAXED REQUESTED. AWAITING DECISION. THANK YOU FOR THIS REFERRAL.
[2018-12-03 11:25] VITALS: BP 148/58
--- NOTE | 2018-12-03 12:38 | NUR ---
5N in process of seeking auth.
--- NOTE | 2018-12-03 14:24 | NUR ---
patient rec auth for 5N. Orders completed. Notfifed patient and family at bedside.
--- NOTE | 2018-12-03 15:19 | NUR ---
ASSESSMENT CHARTED. PT ALERT AND ORIENTED. REPORT HAVING LEG PAIN WITH MOVEMENT. DR YOUNG AWARE. ORDERS NOTED. ORDERS GIVEN TO DISCHARGE PT TO [address] [place] [address]. REPORT GIVEN TO ROHIT MOMIN. FAMILY NOTIFIED.
== END 2018-12-03 15:45 | DRG 235 ==
LOC: TBA 05:55 → 2N 05:55 → ICU 05:55 → PRE 11:19 → ICU 15:18 → 2N 12-01 10:09 → ENTRNSPT 12-03 15:22 → EDTRNSPTSTS 12-03 15:24 → 2N 12-03 15:45
PROVIDERS: Internal Medicine; Physician Assistant; ADMIT Surgery Vascular Surgery
DX: I25.10 Atherosclerotic heart disease of native coronary artery without angina pectoris (principal); J96.01 Acute respiratory failure with hypoxia; D62 Acute posthemorrhagic anemia; E87.0 Hyperosmolality and hypernatremia; E78.5 Hyperlipidemia, unspecified; E66.9 Obesity, unspecified; I42.9 Cardiomyopathy, unspecified; E11.51 Type 2 diabetes mellitus with diabetic peripheral angiopathy without gangrene; I50.9 Heart failure, unspecified; I11.0 Hypertensive heart disease with heart failure; G89.29 Other chronic pain; G47.33 Obstructive sleep apnea (adult) (pediatric); I95.9 Hypotension, unspecified; M79.671 Pain in right foot; Z68.38 Body mass index [BMI] 38.0-38.9, adult; Z79.82 Long term (current) use of aspirin; Z79.899 Other long term (current) drug therapy
CPT/HCPCS: 10078; 10081; 27000; 47000; 47001; 47002; 47297; 48888; 50249; 50409; 50456; 50498; 50643; 50668; 50953; 51301; 52131; 52259; 52314; 53327; 53358; 54118; 55415; 56455; 56524; 56525; 56526; 56527; 56528; 56531; 56534; 56668; 56760; 56898; 57093; 57116; 57167; 62110; 62950; 65003; 65020; 65047; 65090; 65135

== ENCOUNTER 2018-12-03 14:19 | Inpatient (IN) | payer OTHER ==
[~2018-12-03] VITALS: Ht 167.6 cm; Wt 107.7 kg
--- NOTE | ~2018-12-03 | PLAN ---
[facility] [place] [address] REHAB UNIT PLAN OF CARE Name: OLMAN PICHARDO Room #: 511-P ADM IN M.R.#: [id number] Admission: 12/03/18 Attend Phys: Vincent Dawson MD Discharge: Date of : 63 Report #: [id number] THIS REPORT FOR: //name// CC: Vincent Pyle DATE OF SERVICE: 12/05/2018 PROGRESS NOTE AND OVERALL PLAN OF CARE SUBJECTIVE: The patient is seen back today in followup. She has some complaints of some right ankle pain. She notes that it actually started prior to rehabilitation on her second walking therapy apparently while getting up after her surgery. She had some pain over her right ankle dorsum and it kept dropping last night. On examination, her foot temperature appears symmetric with her left lower extremity. There is no erythema over the right ankle. She does have decreased sensation consistent with her peripheral neuropathy. No significant tenderness over the lateral malleolus or swelling per se. She does have decreased range of motion, which is premorbid. Functionally, she has been working in therapies with transfers. Bed mobility, max assist. She needs max assist of 2 for sit to stand from a low chair. She did ambulate 20 feet min assist with a front-wheeled walker. In occupational therapy, she is max assist for lower body dressing. ASSESSMENT: 1. Severe coronary artery disease, status post coronary artery bypass grafting x 5 on 11/27/2018. 2. Medical complexity with generalized debilitation. 3. Question postop metabolic encephalopathy. 4. Respiratory failure. 5. Diabetes mellitus type 2. 6. Acute blood loss anemia. 7. Diabetic peripheral neuropathy. 8. Hypertension. 9. Obesity. 10. Hyperlipidemia. 11. Right ankle pain. She had prior venous Dopplers that were negative bilaterally. We will check a right ankle x-ray. Discussion with the hospitalist, nurse practitioner. It is possible she had a mild ankle sprain versus maybe some arthritis or possibly even a gouty component. Note that she was started on Lyrica with the diabetic neuropathy. PLAN: The overall plan of care is based on the preadmission screen, post-admission physician evaluation and information garnered from therapy assessments. [address] [address] REHAB UNIT PLAN OF CARE Name: OLMAN PICHADRO Room #: 511-P ADM IN ..#: [id number] Admission: 12/03/18 Attend Phys: Vincent Dawson MD Discharge: Date of : 63 Report #: [id number] 1. Estimated length of stay is probably at least 7-10 days. 2. Medical prognosis is reasonably good. 3. Anticipated interventions includes the interdisciplinary acute inpatient rehabilitation program. 4. Anticipated functional outcomes would be for the patient to become modified independent with transfers, mobility and ADLs as well as cognition with speech therapy involved. 5. Expected therapy by includes PT, OT and speech 1 hour per day each five days a week throughout the duration of the acute inpatient rehabilitation stay. Speech will be involved in assisting regarding cognitive issues. By: [id number] Vincent Dawson MD /MUKUL
--- NOTE | ~2018-12-03 | H ---
[facility] [place] [address] HISTORY AND PHYSICAL Name: OLMAN PICHARDO Room #: PRE IN M.R.#: [id number] Admission: Attend Phys: Vincent Dawson MD Discharge: Date of : 63 Report #: [id number] THIS REPORT FOR: //name// CC: Vincent Pyle DATE OF SERVICE: 12/03/2018 HISTORY OF PRESENT ILLNESS: The patient is a 53-year-old -[place] female who originally was admitted to [facility] on 11/27/2018 for scheduled 5-vessel coronary artery bypass grafting for severe coronary artery disease. She had a postoperative respiratory failure and had postop acute blood loss anemia. She was followed closely by Cardiology as well as Cardiac Surgery and Internal Medicine. They were monitoring her diabetes medications. She gradually was medically stabilized. She has some left lower extremity pain and venous Doppler study was negative. She was felt to be ready and now has been admitted for acute in-hospital inpatient rehabilitation. PAST MEDICAL HISTORY: Includes diabetes mellitus, cardiomyopathy, peripheral arterial disease, status post left superficial femoral artery and popliteal arthrectomy with stent placement on 08/2018, CHF, hypertension, hypercholesterolemia, diabetes mellitus. Echocardiogram revealing left ventricular ejection fraction 40%, mild MR. She has had some toenail/toe issues and is followed with a medical detail representative for this. ALLERGIES: No known drug allergies. MEDICATIONS: Please see the full medication listing. This includes vitamins, herbals, and supplements per report. SOCIAL HISTORY: She lives at home with her and son. She has 3 steps in and then all living on one level. She was independent with ADLs, besides showering, she uses a shower bench. Her assisted with washing her back side. She noted 1 fall in the past year without injury. and her share IADLs. She utilizes no adaptive device. 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 She was sit at a desk and also pushes pulls carts around the office at times. HABITS: No history of alcohol, tobacco or recreational drug abuse. REVIEW OF SYSTEMS: No weakness, fever or chills. No shortness of breath or cough. No chest pain or palpitations. No constipation, abdominal pain, or nausea. Denied any back pain. She has some lower extremity discomfort with the incisions and she has had the prior toe nail issues. She does have a history of a peripheral neuropathy as well with decreased sensation distally. Did not complain of any dizziness or headache. She does have some leg and ankle pain [address] [address] HISTORY AND PHYSICAL Name: OLMAN PICHARDO Room #: PRE IN [facility].#: [id number] Admission: Attend Phys: Vincent Dawson MD Discharge: Date of : 63 Report #: [id number] postsurgical site as noted above. PHYSICAL EXAMINATION: GENERAL: She is an overweight, pleasant 53-year-old -[place] female, somewhat flat affected, but not in any distress. VITAL SIGNS: Last recorded temperature 98.4, pulse 67, respirations 18, blood pressure 148/58. NEUROLOGIC: The patient is oriented, follows commands without difficulty. Facies are symmetric. HEENT: Appeared to be benign. CHEST: Sounded clear to auscultation. She has a midline sternal incision. CARDIOVASCULAR: Sounded regular rate and rhythm. ABDOMEN: Obese, bowel sounds positive, nontender. GENITOURINARY AND RECTAL: Deferred. EXTREMITIES: She has functional range of motion of the upper extremity strength is probably a grade 4-/5. Left lower extremity, she has the medial incision, which is dressed. She has a bandage over her left large toe and upon removing the bandage appears to have had prior toenails surgery with the lateral border of the large toenail looking like it had been excised. She does have decreased distal sensation with decreased proprioception consistent with her peripheral neuropathy. Her strength is probably a grade 3+ to 4-/5. Functionally prior to rehab admission, she has been needing assistance with max assist sit to stand, was just ambulating a short distance, mod assist with a front-wheeled walker. ASSESSMENT: A 53-year-old -[place] female with the following problem list: 1. Cardiac debilitation. 2. Medical complexity with generalized debilitation. 3. Severe coronary artery disease, status post coronary artery bypass grafting x 5 on 11/27/2018. 4. Acute respiratory failure. 5. Diabetes mellitus type 2. 6. Acute blood loss anemia. 7. Premorbid history of diabetic peripheral neuropathy. 8. Some left ankle incisional discomfort. 9. Prior podiatric toenail surgery. 10. Hypertension. 11. Obesity. 12. Hyperlipidemia. PLAN: The patient is admitted for acute in-hospital inpatient rehabilitation. From a postadmission physician evaluation perspective, there are no relevant changes since the preadmission screening. Please see the review of prior and current medical and functional conditions and comorbidities. Please see the prior and current functional status. As far as risk of complications, the patient has the above noted comorbidities. Initial plan of care involves the [address] [address] HISTORY AND PHYSICAL Name: OLMAN PICHARDO Room #: PRE IN Heather#: [id number] Admission: Attend Phys: Vincent Dawson MD Discharge: Date of : 63 Report #: [id number] interdisciplinary acute inpatient rehabilitation program with goal of maximizing her functional independence, so she can hopefully return back to her prior living situation. Prognosis is reasonably good with estimated length of stay probably 7-10 days and potentially longer as warranted. Potential barriers would include her multiple medical comorbidities and decreased functional status. The patient meets diagnostic criteria for an acute in-hospital inpatient rehabilitation stay. She meets the medical necessity criteria. She does have the tolerance for therapies and she has appropriate discharge goals back to the home setting. By: [id number] Vincent Dawson MD /nt
[~2018-12-03 14:19] MED LIST changes: +ALBUTEROL2.5 MG/0.5 INH; +FERREX 150 PLU1 EAC1 PO; +GENTAMICIN 0.15 CR TOP; +LOPRESSOR25 PO; +MELATONIN1 MG PO; +NOVOLOG100 UNIT/1 SUBQ; +PEPCID20 MG PO
[2018-12-03 16:00] VITALS: BP 143/49
--- NOTE | 2018-12-03 18:49 | NUR ---
ASSUMED CARE OF PATIENT AT 17:10. ADMISSION COMPLETED, CONSENTS SIGNED, EDUCATION PROVIDED TO PATIENT. UP TO CHAIR TO EAT MEAL. REPORTS DECREASE IN PAIN. FALL PRECAUTIONS IN PLACE. CARE PLAN INITIATED.
[2018-12-03 19:30] VITALS: BP 130/50
--- NOTE | 2018-12-04 04:13 | NUR ---
ASSUMED CARE AT APPROX 1900 EVENING 12/03. PT SITTING UP IN RECLINER AT CHANGE OF SHIFT, ALERT AND ORIENTED X4, APPROPRIATE AND COOPERATIVE, SOMEWHAT FLAT AFFECT. PT USING PILLOW FOR STERNAL PRECAUTIONS. AT BEDSIDE STAYING THE NIGHT SLEEPING IN RECLINER. PT TOOK HS MEDS WITH WATER TOLERATING WELL AND PAIN MED GIVEN ORDERED. PT APPEARS TO BE SLEEPING AT PRESENT. BED ALARM ON AND CALL LIGHT IN REACH. WILL CONTINUE TO MONITOR.
[2018-12-04 05:22] LABS: HEMATOCRIT 21.8 % (37.0-47.0); MCH 23.7 pg (26.0-34.0); MCHC 32.2 g/dL (28.0-37.0); MCV 73.7 fL (80.0-100.0); RBC 2.95 mil/uL (4.20-5.00); RDW 22.1 % (10.5-14.5); WBC 8.3 thou/uL (4.0-11.0)
[2018-12-04 05:32] LABS: CALCIUM 8.7 mg/dL (8.5-10.1); CREATININE 0.9 mg/dL (0.6-1.0); POTASSIUM 3.9 mmol/L (3.5-5.1)
[2018-12-04 07:31] VITALS: BP 122/46
--- NOTE | 2018-12-04 10:20 | NUR ---
CHART REVIEW, PT SITTING UP IN RECLINER CHAIR, HOLDING HEART PILLOW. OT VISITED WITH PT WELL. CM INTRO TO CM, DCP, TRANSITION OF CARE, HH VS OUTPT THERAPY, AND TEAM MEETING. PT A & O X 4, ABLE TO MAKE HER NEEDS KNOW. " LIVE HOME WITH AND SON. HAVE 3 STEPS TO ENTER. NO STAIR INSIDE. LAUNDRY UPSTAIRS AND DOES THE LAUNDRY. SHOWER CHAIR THAT SIT IN TUBE, HELP HER IN AND OUT OF TUB, NEEDS HELP WASHING HER BACK. 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 COOK AND CLEAN. RUN ERRANDS TOGETHER. MANAGE OWN MEDICATION AND ABLE TO DO OWN INSULIN SHOT. TO BE BRING SOME CLOTHES FOR PT TO WEAR"/ARESSA. WILL CONT FOLLOWING NEEDED FOR DC NEEDS.
[2018-12-04 19:30] VITALS: BP 152/50
--- NOTE | 2018-12-04 20:08 | NUR ---
ASSUMED CARE OF PT AT 0715. PT IS A&OX4 WITH FLAT AFFECT AND PARTICIPATES IN LITTLE SOCIAL INTERACTION, FAILS TO MAINTAIN EYE CONTACT DURING INTERACTIONS, VITAL SIGNS ARE STABLE. MIDLINE STERNAL INCISION COVERED WTIH WOUND VAC AND DRAINING APPROPRIATELY. SURGICAL GRAFT SITES TO THE LLE AND OPEN ULCER TO THE RIGHT ANKLE COVERED WITH GAUZE DRESSING. ACCU CHECK ACHS AND MANAGED WITH INSULIN. MAINTAINING STERNAL PRECAUTIONS AND FLUID RESTRICTIONS. PAIN REPORTED IN STERNUM AND RIGHT FOOT, MANAGED WITH PO MEDICAITONS, ORDERS CHANGED THIS AFTERNOON, PT PARTICIPATED IN SCHEDULED THERAPIES. CONSULTS CALLED. FALL PRECAUTIONS IN PLACE AND NURSING WILL CONTINUE TO MONITOR.
--- NOTE | 2018-12-05 03:22 | NUR ---
PT ALERT AND ORIENTED X 4. FLAT AFFECT. AMB TO BR WITH WALKER AND ASSIST X 1. STERNAL PRECAUTIONS MAINTAINED. CHEST WOUND VAC INTACT. INCISIONS TO LEFT GROIN, KNEE AND ANKLE C/D/I. DRESSING TO LEFT GREAT TOE C/D/I. PT C/O PAIN IN RIGHT ANKLE. HYDROCODONE GIVEN X 1 SO FAR TONIGHT. HERE DURING THE NIGHT. BED ALARM ON FOR SAFETY. PT CHECKED ON HOURLY ROUNDS.
[2018-12-05 05:27] LABS: CALCIUM 8.8 mg/dL (8.5-10.1); CREATININE 0.9 mg/dL (0.6-1.0); POTASSIUM 4.1 mmol/L (3.5-5.1)
[2018-12-05 05:56] LABS: HEMATOCRIT 22.6 % (37.0-47.0); HEMOGLOBIN 7.3 gm/dL (12.0-15.0); MCH 24.2 pg (26.0-34.0); MCHC 32.4 g/dL (28.0-37.0); MCV 74.6 fL (80.0-100.0); RBC 3.03 mil/uL (4.20-5.00); RDW 22.7 % (10.5-14.5); WBC 8.7 thou/uL (4.0-11.0)
[2018-12-05 08:00] VITALS: BP 123/63
[2018-12-05 11:41] LABS: URIC ACID* 3.9 mg/dL (2.6-7.2)
--- NOTE | 2018-12-05 15:05 | NUR ---
ASSUMED CARES AT 0700. PT AWAKE, ALERT AND ORIENTED *4, FLAT AFFECT. TEARFUL THIS AM R/T RIGHT ANKLE PAIN. PAIN MEDICATION ADMINISTERED ORDERED. XRAY OF ANKLE RIGHT SHOWS NO FX OR DISLOCATION. STERNAL INCISION REMAINS INTACT AND DRY. DRESSINGS ON RLE REMAIN INTACT AND DRY. RIGHT BIG TOE DRESSING CHANGED. PT PARTICIPATED IN THERAPY AND TOLERATED WELL. VITALS REMAIN STABLE. UP WITH 1 MIN ASSIST GB AND WALKER. Q1H VISUAL CHECKS. CALL LIGHT WITHIN REACH. FALL PRECAUTIONS IN PLACE
[2018-12-05 19:25] VITALS: BP 118/64
--- NOTE | 2018-12-06 02:48 | NUR ---
assumed care at approx 1900 evening 12/05. pt sitting up in recliner at change of shift. pt calm, cooperative and with flat affect. friend at bedside staying the night in recliner. pt took hs meds with water tolerating well. pt up to bathroom with assist of 1 tolerating well. pt using pillow for sternal precautions. pt appears to be sleeping soundly with hourly rounding checks. bed alarm on and call light in reach. will continue to monitor.
[2018-12-06 07:58] VITALS: BP 149/77
--- NOTE | 2018-12-06 16:25 | NUR ---
ASSUMED CARES AT 0700. PT AWAKE, ALERT AND ORIENTED *4. C/O NON-CARDIAC CHEST PAIN AND R ANKLE PAIN, PAIN MEDICATION ADMINISTERED ORDERED. VITALS REMAIN STABLE. CHEST INCISION REMAIN DRY AND INTACT, LEFT LE DRESSING DRY AND INTACT, LEFT BIG TOE CLEANED AND DRESSING CHANGED. CONTINUES TO MAINTAIN STERNAL PRECAUTIONS. UP WITH MIN-MOD ASSIST, HEART PILLOW, GB AND WALKER. PARTICIPATED IN ALL THERAPY AND CONTINUES TO PROGRESS TOWARDS DC GOALS. Q1H VISUAL CHECKS. CALL LIGHT WITHIN REACH. FALL PRECAUTIONS IN PLACE
[2018-12-06 19:30] VITALS: BP 150/52
--- NOTE | 2018-12-07 02:32 | NUR ---
PT ALERT AND ORIENTED X 4. AMB TO BR WITH WALKER AND ASSIST X 1. CHEST WOUND VAC INTACT. INCISIONS TO LEFT LEG C/D/I. PT C/O PAIN IN RIGHT ANKLE. HYDROCODONE GIVEN AT HS. PT VERBALIZES PARTIAL RELIEF OF PAIN. BED ALARM ON FOR SAFETY. PT APPEARS TO BE SLEEPING ON HOURLY ROUNDS.
[2018-12-07 07:45] VITALS: BP 142/54
--- NOTE | 2018-12-07 17:40 | NUR ---
ASSESSMENT CHARTED. PT ALERT AND ORIENTED. VSS. RECEIVED PRN PAIN MED FOR LEG PAIN WITH PARTIAL RELIEF. STERNUM DRESSING INTACT WITH WOUND VAC. STERNAL PRECAUTION ENFORCED. UP IN THE CHAIR THIS SHIFT. NO CARDIAC OR RESPIRATORY DISTRESS NOTED. FALL PRECAUTION IN PLACE. WILL CONTINUE TO MONITOR.
[2018-12-07 19:33] VITALS: BP 131/58
--- NOTE | 2018-12-08 00:53 | NUR ---
PT ALERT AND ORIENTED X 4 WITH FLAT AFFECT. AMB TO BR WITH WALKER AND ASSIST X 1. CHEST WOUND VAC INTACT. INCISIONS TO LEFT LEG C/D/I. PT C/O PAIN IN RIGHT ANKLE. HYDROCODONE GIVEN X 1 SO FAR TONIGHT. VOLTAREN OINT APPLIED TO RLE ORDERED. BED ALARM ON FOR SAFETY. PT CHECKED ON HOURLY ROUNDS. SIGNIFICANT OTHER HERE DURING THE NIGHT.
[2018-12-08 07:45] VITALS: BP 142/54
--- NOTE | 2018-12-08 10:11 | NUR ---
ASSUMED CARES AT 0700. PT AWAKE, ALERT AND ORIENTED*4. C/O RIGHT ANKLE PAIN, PAIN MEDICATION ADMINISTERED ORDERED. PT REMAINS ON STERNAL PRECAUTIONS, USING HEART PILLOW WITH TRANSFERS AND THERAPY. STERNAL INCISION REMAINS DRY AND INTACT, WOUND VAC REMAINS INTACT. LEFT BIG TOE CLEANED AND DRESSING CHANGED. DRESSING ON LEFT BARRON REMAINS DRY AND INTACT. PT UP WITH 1 MIN ASSIST, GB AND WALKER AND TOLERATED WELL. Q1H VISUAL CHECKS. CALL LIGHT WITHIN REACH. FALL PRECAUTIONS IN PLACE
[2018-12-08 19:10] VITALS: BP 154/54
[2018-12-08 21:15] VITALS: BP 135/55
--- NOTE | 2018-12-09 02:03 | NUR ---
assumed care at approx 1900 evening 12/08. pt lying in bed with head of bed elevated at change of shift visiting with family at bedside. at bedside stays the night. pt up to bathroom with 1 assist and pt using chest pillow while up. pt given hs meds with water with pt tolerating well. pt appears to be sleeping soundly with hourly rounding checks. bed alarm on and call light in reach. will continue to monitor.
[2018-12-09 08:00] VITALS: BP 140/56
--- NOTE | 2018-12-09 14:29 | NUR ---
team meeting, recommendation: re team with dc 12/18/18 hh ( pt, ot, nursing), will need fww.
--- NOTE | 2018-12-09 17:09 | NUR ---
1630 RESULTS FROM ARTERIOGRAM SHOWED RIGHT LEG ARTERY OCCULSION. DENTURE PACKER NOTIFIED. ORDER RECIEVED FOR TRANSER TO TELEMETRY BED LEDA. PATIENT IS TO BE NPO EXCEPT MEDS WITH SIP OF WATER AND CONSENT FOR ARTERIOGRAM WITH RUNOFFS AND POSSIBLE STENT PLACEMENT. REPORT WILL BE CALLED TO 2N NURSE SOON BED AVAILABLE.
[2018-12-09] MEDS ORDERED: ALBUTEROL2.5 MG/31 INH (19:07)
== END 2018-12-09 19:27 | disposition short-term general hospital (02) | DRG 947 ==
PROVIDERS: Nurse Practitioner; ADMIT Physical Medicine & Rehabilitation
DX: R53.81 Other malaise (principal); I25.10 Atherosclerotic heart disease of native coronary artery without angina pectoris; J96.01 Acute respiratory failure with hypoxia; D62 Acute posthemorrhagic anemia; I42.9 Cardiomyopathy, unspecified; E11.42 Type 2 diabetes mellitus with diabetic polyneuropathy; E66.9 Obesity, unspecified; E78.5 Hyperlipidemia, unspecified; E11.51 Type 2 diabetes mellitus with diabetic peripheral angiopathy without gangrene; I11.0 Hypertensive heart disease with heart failure; I50.9 Heart failure, unspecified; E78.00 Pure hypercholesterolemia, unspecified; Z68.38 Body mass index [BMI] 38.0-38.9, adult
CPT/HCPCS: 10112

== ENCOUNTER 2018-12-09 20:17 | Inpatient (IN) | payer OTHER ==
[~2018-12-09] VITALS: Ht 167.6 cm; Wt 108.9 kg
--- NOTE | ~2018-12-09 | HC ---
[facility] [place] [address] CONSULTATION Name: OLMAN PICHARDO Room #: 209-P ADM IN M.R.#: [id number] Admission: 12/09/18 ������������������ Attend Phys: Devang Tsang MD Discharge: ������������������ Date of : 63 Report #: [id number] THIS REPORT FOR: //name// CC: Devang Pyle DATE OF SERVICE: 12/10/2018 We were asked by Dr. Sparrow to see the patient. HISTORY OF PRESENT ILLNESS: The patient is known to me from coronary artery bypass surgery several weeks ago. The patient has a history of peripheral arterial occlusive disease and while the patient was on the rehabilitation unit, there was some concern about rest pain in the right foot. Arteriography by Dr. Sparrow revealed long segment occlusion throughout the lower sioux superficial femoral artery on the right, similar to a previous angiogram in 08/2018. This was unable to be successfully recanalized despite angioplasty. There was collateral filling of the below-knee popliteal artery and posterior tibial and peroneal arteries. On the left side, the arteriography was similar, but the distal runoff was less well preserved. PAST MEDICAL HISTORY: Diabetes mellitus and as mentioned, recent coronary artery bypass surgery. MEDICATIONS: Plavix as well as Lyrica, Pletal, atorvastatin, iron, metoprolol, aspirin, and analgesics. ALLERGIES: None known. Previous surgery as mentioned, coronary artery bypass surgery several weeks ago and lower extremity stent graft placements for superficial femoral artery occlusive disease. REVIEW OF SYSTEMS: Largely related to the coronary artery disease and slow progress in the postoperative period. PHYSICAL EXAMINATION: GENERAL: The patient is in bed after an arteriogram. VITAL SIGNS: Temperature 36.7, heart rate 72, blood pressure 150/62. HEENT: No scleral icterus, no arcus. NECK: No mass. Left cervical bruit. CHEST: Clear. HEART: Rhythm regular. Incision healing nicely. ABDOMEN: Soft. EXTREMITIES: I do not feel popliteal, dorsalis pedis, or posterior tibial [facility] [address] [place] [address] CONSULTATION Name: OLMAN PICHARDO Room #: 209[facility] IN M.R.#: [id number] Admission: 12/09/18 ������������������ Attend Phys: Devang Tsang MD Discharge: ������������������ Date of : 63 Report #: [id number] pulses. The patient has motion and sensation distally and capillary refill. There is a dressing covering the left great toe ulcer, but no lesions are seen on the right foot. I reviewed the arteriographic findings with the patient and her . This appears to be chronic arterial occlusive disease and I have recommended that we allow the patient to get stronger after her recent heart surgery and then review surgical option when the patient returns to our office. Risks and details of all of this were discussed in general, but no specific recommendation for surgery was made at this point. Thank you for the consult. ��������������������������������������������� ���������������������������������������� By: ��������������������������������������������� 1631 0120 Cody Murrieta MD /kimberley
[2018-12-09 20:00] VITALS: BP 149/64
[~2018-12-09 20:17] MED LIST changes: +ALBUTEROL2.5 MG/31 INH
[2018-12-09 21:42] LABS: HEMATOCRIT 22.9 % (37.0-47.0); HEMOGLOBIN 7.3 gm/dL (12.0-15.0); MCH 23.5 pg (26.0-34.0); MCHC 32.1 g/dL (28.0-37.0); MCV 73.2 fL (80.0-100.0); RBC 3.13 mil/uL (4.20-5.00); WBC 9.9 thou/uL (4.0-11.0)
[2018-12-09 21:57] LABS: PROTIME 10.7 Seconds (9.3-11.4)
[2018-12-10] VITALS (7 sets, daily range): BP systolic 144–176; BP diastolic 58–99
--- NOTE | 2018-12-10 02:40 | NUR ---
ASSUMED CARE OF PATIENT FROM . NO IV ACCESS, NO ADMITTING ORDERS, NO PAIN MEDS. MARVEL BOOTHE NOTIFIED, ORDERS OBTAINED. ATTEMPTED IV 3 TIMES BEFORE SUCCESS IN RIGHT WRIST. PAIN MOANING AND CRYING IN PAIN. FAMILY HIGHLY AGITATED AND UPSET AT BEDSIDE. WANTED TO KNOW WHY SHE WASN'T GIVEN PAIN MEDS PRIOR TO ARRIVAL. GIVEN IV FENTYNAL AND PO OXYCODONE ORDERED. PATIENT KEEPS ASKING WHY THE PAIN WON'T GO AWAY. EDUCATED ABOUT OCCLUSION AND POC. AT BEDSIDE. MUCH MORE CALM AFTER PAIN MEDS ADMINISTERED WELL [place] CATHETER PLACED. DR HAYWOOD CONSULTED. ORDERS TO START HEPARIN OBTAINED. INFUSING PER PROTOCOL. NPO AFTER MIDNIGHT.
[2018-12-10 05:36] LABS: HEMATOCRIT 22.9 % (37.0-47.0); HEMOGLOBIN 7.4 gm/dL (12.0-15.0); MCH 23.7 pg (26.0-34.0); MCHC 32.2 g/dL (28.0-37.0); MCV 73.6 fL (80.0-100.0); PLATELET COUNT 351 thou/uL (150-400); RBC 3.11 mil/uL (4.20-5.00); RDW 22.2 % (10.5-14.5)
[2018-12-10 05:48] LABS: ALBUMIN 2.5 g/dL (3.4-5.0); CALCIUM 8.9 mg/dL (8.5-10.1); CREATININE 0.9 mg/dL (0.6-1.0); MAGNESIUM 1.9 mg/dL (1.8-2.4); PHOSPHORUS 3.8 mg/dL (2.5-4.9); POTASSIUM 3.9 mmol/L (3.5-5.1); TOTAL BILIRUBIN 0.3 mg/dL (<0.1-1.0); TOTAL PROTEIN 6.9 g/dL (6.4-8.2)
[2018-12-10 08:34] LABS: ABSOLUTE NEUTROPHILS 7.3 thou/uL (1.4-8.2); ANISOCYTOSIS 3+; MICROCYTES 1+; POLYCHROMASIA OCCASIONAL
[2018-12-10 08:35] LABS: HYPOCHROMASIA 1+
--- NOTE | 2018-12-10 12:47 | NUR ---
PT ARRIVES FROM IR WITH SHEATH IN PLACE. PER SUPERVISOR STENO POOL RN SHEATH TO PULLED AT 1330. SITE CLEAN DRY AND INTACT. NO HEMATOMA. WILL CONTINUE TO MONITOR. VSS.
--- NOTE | 2018-12-10 13:55 | NUR ---
Nutrition: pt transferred from rehab unit to CCU with right arterial occlusion. Having arteriogram with runnoff, possible stent today. Pt not available x 2 attempts to visit. Received consult for education. Pt with recent CABG on 11/27. RD visited on previous admit. Hx DM A1C 6.6 No recent weight changes. BMI 39, obesity class 2. REC advance diet as appropriate to heart healthy, carb controlled. Previously attempted education and pt only wanted materials left to review. Will revisit pt 12/11. Otherwise low risk.
--- NOTE | 2018-12-10 13:59 | NUR ---
CLINICAL DOCUMENTATION SPECIALIST BEDSIDE FOR SHEATH PULL. VSS. WILL CONTINUE TO MONITOR.
--- NOTE | 2018-12-10 14:16 | NUR ---
REPORT TO LILIANE WADE AT THIS TIME.
--- NOTE | 2018-12-10 15:17 | NUR ---
patient admits to acute care from rehab unit. Dc to [facility] rehab unit 11/27 post CABG. Patient resides with S/O Nick in independent home with all needs on one level. 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 Steve reports they are aware of hospital stay. Patient independent with adls bellhop captain to rehab unit and hosp stay. Spouse assists with some bathing patient has shower chair in bathtub. Patient admits with arteral occultion of rt femoral artery. Tenative plan for return to acute rehab. Acute rehab following will need to rec authorization prior to acceptance.
--- NOTE | 2018-12-10 15:41 | NUR ---
FAXED REFERRAL TO [facility] FOR A [facility] SPOKE WITH [facility] IN INTAKE AND THEY RECEIVED REFERRAL AND WILL DELIVER WALKER TO PT PRIOR TO DC TOMORROW. DCP TO FOLLOW.
--- NOTE | 2018-12-10 17:53 | NUR ---
ASSUMED CARE OF PT AT SHIFT CHANGE. ASSESSMENTS CHARTED-NOON ASSESSMENT NOT CHARTED DUE TO PT BEING OFF UNIT. PT RETURNED FROM PROCEDURE AT APPROX 1500. LEFT GROIN SITE CDI, NO HEMATOMA. BEDREST 6 HOURS. IN ROOM. PAIN MANAGED WITH PO AND IV MEDS. LEFT GROINS REMAINS CDI, NO HEMATOMA. DENIES NEEDS AT THIS TIME. CONTINUING TO MONITOR.
[2018-12-10 23:10] LABS: GLYCOHEMOGLOBIN (HGB A1C) 6.6 % (4.8-5.6)
[2018-12-11] VITALS (9 sets, daily range): BP systolic 138–160; BP diastolic 45–63
[2018-12-11 05:29] LABS: ALBUMIN 2.4 g/dL (3.4-5.0); CALCIUM 8.5 mg/dL (8.5-10.1); CREATININE 0.8 mg/dL (0.6-1.0); MAGNESIUM 1.9 mg/dL (1.8-2.4); POTASSIUM 3.7 mmol/L (3.5-5.1); TOTAL BILIRUBIN 0.5 mg/dL (<0.1-1.0); TOTAL PROTEIN 6.7 g/dL (6.4-8.2)
--- NOTE | 2018-12-11 05:37 | NUR ---
ASSESSMENT DOCUMENTED.PT BEEN RESTING IN NO ACUTE DISTRESS SPOUSE AT BEDSIDE.S/P ARTERIOGRAM VIA LEFT GROIN,NI HEMATOMA PRESENT R ACTIVE BLEEDING.PT WAS ABLE TO SIT UP THE EDGE OF THE BED FOR ABOUT ONE HOUR AFTER BEING OFF BEDREST.PERIPHERAL PULSES PRESENT ON DOPPLER.RIGHT FOOT WITH EDEMA.ELEVATED W/PILLOW.PAIN MEDS GIVEN PER JUN.PAIN MED ADJUSTED FOR BETTER PAIN CONTROL.PT VOICING GETTING RELIEF FROM MORPHINE.STERNAL DRESSING CDI,PREVANA VAC IN PLACE.LEFT LEG WOUNDS DRESSING RENITA WICK DD.SR ON MONITOR W/PVCS.RA W/O RESP DISTRESS.PT DENIES ANY OTHER NEEDS AT THIS TIME.
[2018-12-11 05:49] LABS: ABSOLUTE NEUTROPHILS 6.1 thou/uL (1.4-8.2); BASOPHILS 0.4 % (0.0-2.0); EOSINOPHILS 1.1 % (0.0-3.0); HEMATOCRIT 22.3 % (37.0-47.0); HEMOGLOBIN 7.1 gm/dL (12.0-15.0); LYMPHOCYTES 17.5 % (24.0-44.0); MCH 23.6 pg (26.0-34.0); MCHC 31.8 g/dL (28.0-37.0); MCV 74.4 fL (80.0-100.0); MONOCYTES 8.6 % (1.0-8.0); PLATELET COUNT 334 thou/uL (150-400); POLYS 72.4 % (36.0-66.0); RDW 21.9 % (10.5-14.5); WBC 8.4 thou/uL (4.0-11.0)
--- NOTE | 2018-12-11 09:38 | NUR ---
Followup: pt denies need for further education. Intake is improving 75-100% of meals and pt would like to still continue glucerna shakes bid. Food preferences obtained. Low nutrition risk
--- NOTE | 2018-12-11 13:29 | NUR ---
Pt and her sign other visited with the [facility] acute rehab liason. They are agreeable to readmission if insurance auth obtained. PT/OT evals pending this afternoon. [facility] to submit for ins auth after evals. Cardiac rehab has visited with the pt. Once she is able to return home and is not homebound, her plan is to start [facility] out Cardiac rehab. They have sent the referral. Care team updated.
--- NOTE | 2018-12-11 18:02 | NUR ---
ASSUMED CARE OF PT AT SHIFT CHANGE. ASSESSMENTS CHARTED. MEDS GIVEN PER MAR. VSS. A&O. PAIN MANAGED WITH IV AND PO MEDS. AT BEDSIDE. WORKED WITH PT/OT. DISCHARGE DISCUSSED. PLAN TO GO TO [facility] IF INSURANCE AUTHORIZES. WILL CONTINUE TO MONITOR AND FOLLOW POC.
--- NOTE | 2018-12-12 03:16 | NUR ---
ASSESSMENT DOCUMENTED.PT BEEN RESTING IN NO ACUTE DISTRESS.A/OX4.VSS.SURGICAL WOUNDS COVERED W/DRY DRESSING.PAIN MEDS ADMINISTERED PER ORDERS.SPOUSS AT BEDSIDE.PERIPHERAL PULSES ON DOPPLER.POC IS TO TRANSFER TO N.
[2018-12-12 04:07] VITALS: BP 152/56
[2018-12-12 05:45] LABS: RDW 21.4 % (10.5-14.5)
[2018-12-12 05:53] LABS: HEMATOCRIT 21.6 % (37.0-47.0); HEMOGLOBIN 6.8 gm/dL (12.0-15.0); MCHC 31.4 g/dL (28.0-37.0); MCV 73.3 fL (80.0-100.0); RBC 2.94 mil/uL (4.20-5.00); WBC 7.9 thou/uL (4.0-11.0)
[2018-12-12 08:00] VITALS: BP 143/51
[2018-12-12 10:53] VITALS: BP 126/45; BP 141/57
[2018-12-12 12:00] VITALS: BP 139/43
[2018-12-12 13:28] LABS: ABSOLUTE NEUTROPHILS 5.7 thou/uL (1.4-8.2); BASOPHILS 0.5 % (0.0-2.0); EOSINOPHILS 1.3 % (0.0-3.0); HEMATOCRIT 24.9 % (37.0-47.0); HEMOGLOBIN 7.8 gm/dL (12.0-15.0); LYMPHOCYTES 18.4 % (24.0-44.0); MCH 23.6 pg (26.0-34.0); MCHC 31.6 g/dL (28.0-37.0); MCV 74.6 fL (80.0-100.0); MONOCYTES 7.9 % (1.0-8.0); PLATELET COUNT 317 thou/uL (150-400); POLYS 71.9 % (36.0-66.0); RBC 3.33 mil/uL (4.20-5.00); RDW 21.5 % (10.5-14.5)
[2018-12-12 13:43] LABS: ALBUMIN 2.3 g/dL (3.4-5.0); CALCIUM 8.6 mg/dL (8.5-10.1); CREATININE 0.9 mg/dL (0.6-1.0); POTASSIUM 3.7 mmol/L (3.5-5.1); TOTAL BILIRUBIN 0.7 mg/dL (<0.1-1.0); TOTAL PROTEIN 6.5 g/dL (6.4-8.2)
[2018-12-12 14:10] LABS: ANISOCYTOSIS 2+; HYPOCHROMASIA 1+; MACROCYTES SLIGHT; MICROCYTES 1+; PLATELET ESTIMATE NORMAL; POLYCHROMASIA SLIGHT
[2018-12-12 16:00] VITALS: BP 107/61
[2018-12-12 16:12] LABS: HEMATOCRIT 25.7 % (37.0-47.0); HEMOGLOBIN 8.1 gm/dL (12.0-15.0)
[2018-12-12] MEDS ORDERED: PERCOCET 5-3251 EACH PO (16:14)
[2018-12-12] MEDS ORDERED: MIRALAX17 GM PO (16:15)
[2018-12-12] MEDS ORDERED: IPRAT-ALBUT 0.5-3 ML INH (16:15)
[2018-12-12] MEDS ORDERED: MELATONIN1 MG PO (16:15)
[2018-12-12] MEDS ORDERED: NOVOLOG100 UNIT/1 SUBQ (16:15)
[2018-12-12] MEDS ORDERED: CILOSTAZOL 100100 M1 PO (16:15)
--- NOTE | 2018-12-12 17:25 | NUR ---
AUTHORIZATION FOR ACUTE REHAB ADMISSION RECEIVED FROM [facility] THIS DATE, 12/12/18, BY DON. AUTH NUMBER [id number]. AFTER AUTH WAS RECEIVED, PHYSICAL THERAPY PROVIDED TREATMENT FOR PATIENT AND PATIENT'S FUNCTIONAL LEVEL WAS SIGNIFICANTLY DECREASED FROM PREVIOUS DAY WITH INCREASED PAIN REPORTED. ADMISSION TO REHAB WAS CANCELED BY DR. EDWARDS. THERAPY TO SEE PATIENT OVER THE WEEKEND. INSPECTOR TUBES WILL CONTINUE TO FOLLOW.
--- NOTE | 2018-12-12 17:49 | NUR ---
Pt being reassessed for transfer to [facility] acute rehab today;however due to increased pain and poor therapy tolerance [facility] admission is on hold. They will need to reeval Saturday to assess her therapy tolerance and request ins auth.
--- NOTE | 2018-12-12 18:18 | NUR ---
ASSUMED CARE AROUND 1900. AXOX4. SPOUSE AT BEDSDIE AT ALL TIMES. LOW HG. TRANSFUSED PER CARDIOLOGY. C/O PERSISTENT PAIN ON BLE. MED FREQUENCY WAS CHANGED BY . TOLERATED VERY WELL. PREVENA STOPPED WORKING. WHILE ROUNDED, RECEIVED ORDER TO D/C PREVENA AND START DRESSING THE MIDLINE INCISION. NOTED AND CARRIED OUT AT BEDSIDE AND CHEST TUBE INCISIONS ALSO CLEANED AND DRESSED. L GROIN DRESSING ALSO LOOKED AND CDI. PT'S CARE WAS TRANSFERRED TO [facility]. REHAB DR.SMITHSON COX AND PT IS NOT SAFE TO D/C TO [facility] AT THIS TIME. Kyle DUNHAM WAS NOTIFIED BY AND WAS NOTIFIED WITH BY JEMAL CHAVARRIA. NO S/S ACUTE DISTRESS NOTED OR REPORTED AT THIS TIME. WILL CONT TO MONITOR FOR ANY CHANGES IN CONDITION.
[2018-12-12 22:05] VITALS: BP 126/48
[2018-12-13 04:45] VITALS: BP 115/41
[2018-12-13 05:40] LABS: HEMATOCRIT 25.2 % (37.0-47.0); HEMOGLOBIN 7.9 gm/dL (12.0-15.0); MCH 23.6 pg (26.0-34.0); MCHC 31.5 g/dL (28.0-37.0); MCV 74.7 fL (80.0-100.0); RBC 3.37 mil/uL (4.20-5.00); RDW 21.2 % (10.5-14.5); WBC 8.2 thou/uL (4.0-11.0)
[2018-12-13 05:44] LABS: CALCIUM 8.4 mg/dL (8.5-10.1); CREATININE 0.9 mg/dL (0.6-1.0); POTASSIUM 3.9 mmol/L (3.5-5.1)
--- NOTE | 2018-12-13 06:56 | NUR ---
ASSUMED CARE OF PT @1900 PT ASSESSED AT START OF SHIFT A&OX4 WITH C/O PAIN. MEDS GIVEN SEE EMAR. DRESSING INTACT AND NO DRAINGE. FOLLEY CATHETER IN PLACE AND FLUIDS INFUSING. HUSB AT BEDSIDE FOR THE NIGHT WILL CONT TO MONITOR TILL EOS
[2018-12-13 09:24] VITALS: BP 144/55
[2018-12-13 13:01] VITALS: BP 144/45
[2018-12-13 17:02] VITALS: BP 153/50
--- NOTE | 2018-12-13 17:51 | NUR ---
ASSESSMENT CHARTED - MEDS PER MAR - PT GIVEN MORPHINE X 2 DOSES AND PERCOCET X 2 DOSES FOR CO'S OF PAIN - PT STTED PAIN RANGED FROM 7 -5 AND DID FIND PATIENT SLEEPING AFTER BEING MEDICATED. SEEN BY PHYS AND OCC THERAPY THIS SHIFT - UP TO [facility]. NEW IV PLACED IN L WRIST / FOREARM AREA DUE TO PT PULLING PREVIOUS ONE OUT ACCIDENTALY. PT MARSHA DIET AND FLUIDS WITH NO CO'S OR NASUEA - ACCUCHECKS CHARTED COVERED PER SSI. DRESSING TO CHEST AND L THORACIC AREA AND L LEG CHANGED, CHEST DRESSING WITH MIN AMOUNT OR DRAINAGE PRESENST - WOUNDS TO THORACIC AREA HEALING WITH MIN DRAINAGE LEG WOULD APPEARS TOO. NO CO'S AT THE PRESENT TIME - HAS HAD FAMILY IN THE ROOM WITH HER THIS SHIFT.
--- NOTE | 2018-12-13 18:10 | NUR ---
CALLED TO THE DESK AND WANTED THE DOCTOR EKG MONITOR. INFORMED HIM I WOULD COME BACK TO ROOM. UPSET THAT NADYA WAS NOT AUTOMATICALLY GIVEN PAIN MEDICATION AROUND THE CLOCK WITHOUT REQUESTING IT. STATING THAT EVERYONE ELSE HAS GIVEN IT TOO HER THAT WAY - ATTEMPTED TO EXPLAIN THAT THIS IS NOT THE WAY THAT PAIN MEIDICINE IS WRITTEN - PATIENT NEEDS TO REQUEST IT - RESPONDED THAT HOW COULD SHE REQUEST IT WHEN SHE WAS ASLEEP I INFORMED HIM THAT IF SHEWAS SLEEPING AND COULD NOT REQUEST IT THAT SHE DID NOT NEED IT AND I COULD NOT JUST GIVE PAIN MEDICATION. HE WAS NOT HAPPY AND STARTING CURSING - STATING I HOPE THIS NEVER HAPPENS TO YOU - I APOLOGIZED AND RESTATED THAT I WAS NOT ABLE TO GIVEN PAIN MEDICATION UNLESS IT WAS REQUESTED BY THE PATIENT.
[2018-12-13 20:30] VITALS: BP 146/42
[2018-12-13 22:21] VITALS: BP 141/55
--- NOTE | 2018-12-14 04:01 | NUR ---
RECEIVED PT'S CARE AT 1915; PT. ON BED; RELATIVES AT THE BED SIDE; AOX4; EATING DINNER; DURING ASSESSMENT C/O PAIN; PRN PAIN MEDICATION GIVEN; NO BS CHECK DUE TO PT. HAD LATE DINNER; HS MEDICATION GIVEN; DURING PAIN RE-ASSESSMENT PT. SLEEPING; PT. REQUESTED PAIN MEDICATION TWICE DURING THE NIGHT; PAIN SCALE 5/10; PT. ABLE TO REST THROUGH THE NIGHT WITH EYES CLOSED; PAIN RE-ASSESSMENT; PT. SLEEPING; EDUCATED ABOUT VS MONITOR & BP TO PT. & SPOUSE; NO ANSWER BACK; MONITORING; ASSESSMENT CHARGED; FOLLOWING POC; WILL PASS ON REPORT.
[2018-12-14 05:00] VITALS: BP 126/44
[2018-12-14 09:18] VITALS: BP 151/57
[2018-12-14 11:53] VITALS: BP 138/52
[2018-12-14 16:08] VITALS: BP 137/53
--- NOTE | 2018-12-14 16:37 | NUR ---
RECEIVED PT FROM KYRA RN AT 4PM. VSS NSR. LUNGS CLEAR RA SAT IS 97%, PT IN BED, LYING WITHOUT C/O PAIN AT THIS TIME. ALL DRESSINGS INTACT AT THIS TIME WILL CONTINUE TO MONITER AND CARE FOR PT PER PLAN OF CARE
[2018-12-14 20:23] VITALS: BP 160/62
[2018-12-14 22:55] VITALS: BP 152/57
--- NOTE | 2018-12-15 03:47 | NUR ---
RECEIVED PT'S CARE AT 1935; PT. ON BED AOX4; RELATIVES AT THE BED SIDE; PAIN MEDICATION GIVEN BY MORNING NURSE; DURING ASSESSMENT PT. ST. HAVING DECREASE PAIN; 08/15; HS MEDICATION GIVEN; PER SPOUSE REPORT; PT. WAS INFORM FLUIDS MIGHT BE D/C; ORDERS ON eMAR; DURING REPORT ON 12/14/18 MORNING; NURSE INFORMED OF PT. EATING & DRINKING; WILL PASS ON REPORT 12/15/18; PT. REQUESTED PRN PAIN MEDICATION; MEDICATION GIVEN; PAIN RE-ASSESSMENT PT. SLEEPING; MONITORING; ON 12/14/18 PT. ABLE TO USE BED SIDE COMMODE; PASSED ON REPORT EARLY ON THE MORNING FOR POSSIBLE D/C MARAVILLA; WILL PASS ON REPORT 12/15/18; ASSESSMENT CHARGED; FOLLOWING POC; MONITORING; WILL PASS ON REPORT.
[2018-12-15 04:30] VITALS: BP 139/50
[2018-12-15 05:25] LABS: HEMATOCRIT 24.4 % (37.0-47.0); HEMOGLOBIN 7.6 gm/dL (12.0-15.0); MCH 23.4 pg (26.0-34.0); MCHC 31.3 g/dL (28.0-37.0); RBC 3.25 mil/uL (4.20-5.00); WBC 6.6 thou/uL (4.0-11.0)
[2018-12-15 05:39] LABS: CALCIUM 8.7 mg/dL (8.5-10.1); CREATININE 0.9 mg/dL (0.6-1.0); MAGNESIUM 2.2 mg/dL (1.8-2.4); POTASSIUM 4.3 mmol/L (3.5-5.1)
[2018-12-15 07:38] VITALS: BP 147/58
[2018-12-15 12:07] VITALS: BP 142/38
--- NOTE | 2018-12-15 14:09 | NUR ---
patient accepted for return to [facility] they are in process of obtaing auth.
--- NOTE | 2018-12-15 15:08 | NUR ---
PT CARE ASSUMED APPROX 0700. PT ALERT AND ORIENTED X4. REPORTS PAIN TO RIGHT LOWER EXT. MEDICATED OFTEN MEDS ARE AVAILABLE. PT REPORTS ADEQUATE PAIN MANAGEMENT. DENIES SOA. VSS. UP WITH MIN ASSIST. BS ELEVATED BUT MANAGED WITH SSI. ORDERS TO SEND PT TO INPT REHAB COMPLETED. PT DENIES QUESTIONS OR CONCERNS REGARDING POC. REPORT CALLED TO REHAB AND RECEIVING NURSE ALSO DENIES QUESTIONS. MEDICATED AT THIS TIME. PT BELONGINGS GATHERED AND HOSPITAL STAFF TO ESCORT PT UPSTAIRS. IV LEFT IN PLACE PER NURSE REQUEST. TELE OFF.
== END 2018-12-15 15:35 | DRG 252 ==
LOC: 2N 20:17 → ENTRNSPT 12-15 15:21 → EDTRNSPTSTS 12-15 15:28 → 2N 12-15 15:35
PROVIDERS: Hospitalist; Internal Medicine; Internal Medicine Cardiovascular Disease; Nurse Practitioner Adult Health; ADMIT Internal Medicine
PROC: B4181ZZ Fluoroscopy of Bilateral Renal Arteries using Low Osmolar Contrast (ICD-10-PCS; 2018-12-10)
PROC: B41C1ZZ Fluoroscopy of Pelvic Arteries using Low Osmolar Contrast (ICD-10-PCS; 2018-12-10)
PROC: 047K3ZZ Dilation of Right Femoral Artery, Percutaneous Approach (ICD-10-PCS; 2018-12-10)
PROC: B41D1ZZ Fluoroscopy of Aorta and Bilateral Lower Extremity Arteries using Low Osmolar Contrast (ICD-10-PCS; 2018-12-10)
PROC: 30233N1 Transfusion of Nonautologous Red Blood Cells into Peripheral Vein, Percutaneous Approach (ICD-10-PCS; principal; 2018-12-12)
DX: E11.51 Type 2 diabetes mellitus with diabetic peripheral angiopathy without gangrene (principal); J96.00 Acute respiratory failure, unspecified whether with hypoxia or hypercapnia; I42.9 Cardiomyopathy, unspecified; I50.22 Chronic systolic (congestive) heart failure; D62 Acute posthemorrhagic anemia; I74.3 Embolism and thrombosis of arteries of the lower extremities; I25.10 Atherosclerotic heart disease of native coronary artery without angina pectoris; E78.00 Pure hypercholesterolemia, unspecified; I11.0 Hypertensive heart disease with heart failure; E11.42 Type 2 diabetes mellitus with diabetic polyneuropathy; E78.5 Hyperlipidemia, unspecified; E66.01 Morbid (severe) obesity due to excess calories; G47.33 Obstructive sleep apnea (adult) (pediatric); I70.211 Atherosclerosis of native arteries of extremities with intermittent claudication, right leg; Z95.1 Presence of aortocoronary bypass graft; Z79.02 Long term (current) use of antithrombotics/antiplatelets; Z79.82 Long term (current) use of aspirin; Z79.899 Other long term (current) drug therapy; Z95.820 Peripheral vascular angioplasty status with implants and grafts; Z79.4 Long term (current) use of insulin; Z87.891 Personal history of nicotine dependence; Z68.38 Body mass index [BMI] 38.0-38.9, adult
CPT/HCPCS: 10081

== ENCOUNTER 2018-12-12 17:01 | Inpatient (IN) | payer OTHER ==
[~2018-12-12] VITALS: Ht 165.1 cm; Wt 110.7 kg
[~2018-12-12 17:01] MED LIST changes: +CILOSTAZOL 100100 M1 PO; +IPRAT-ALBUT 0.5-3 ML INH; +MIRALAX17 GM PO; +PERCOCET 5-3251 EACH PO
[2018-12-15 16:00] VITALS: BP 141/54
--- NOTE | 2018-12-15 19:28 | NUR ---
ASSUMED CARE OF PT AT 1600. RECEIVED REPORT FROM PRIOR NURSE AT APPROXIMATELY 1530. PT ASSISTED INTO RECLINER CHAIR, ADMISSION ASSESSMENT COMPLETED, ADMISSION VITAL SIGNS OBTAINED, ADMISSION EDUCATION COMPLETED WITH PT AND SPOUSE. MEDICATIONS FAXED TO PHARMACY, ACCU CHECK PRIOR TO DINNER TRAY BEING SERVED. PT REPORTED PAIN IN RIGHT FOOT, MANAGED WITH PO MEDICAITONS. SPOUSE AT THE BEDSIDE. CONSULTS NOT CALLED AT THIS TIME, DUE TO BEING AFTER OFFICE HOURS. FALL PRECAUTIONS IN PLACE AND NURSING WILL CONTINUE TO MONITOR.
[2018-12-15 20:24] VITALS: BP 148/60
--- NOTE | 2018-12-15 23:37 | NUR ---
PT ASSESSMENT DONE AND VSS. MEDS GIVEN ORDERED AND WELL TOLERATED. FALL PRECAUTIONS IN PLACE. AT BEDSIDE. PT GIVEN SUPPOSITORY AND THEN ENEMA TO HELP WITH HAVING A BM. PT HAS NOT HAD A BM FOR SEVERAL DAYS. WILL CONTINUE TO MONITOR.
[2018-12-16 06:09] LABS: HEMATOCRIT 25.4 % (37.0-47.0); HEMOGLOBIN 7.9 gm/dL (12.0-15.0); MCHC 31.2 g/dL (28.0-37.0); MCV 73.7 fL (80.0-100.0); RBC 3.44 mil/uL (4.20-5.00); RDW 21.9 % (10.5-14.5); WBC 7.5 thou/uL (4.0-11.0)
[2018-12-16 06:18] LABS: CALCIUM 8.7 mg/dL (8.5-10.1); CREATININE 0.7 mg/dL (0.6-1.0); POTASSIUM 3.9 mmol/L (3.5-5.1)
[2018-12-16 07:30] VITALS: BP 169/53
--- NOTE | 2018-12-16 08:00 | NUR ---
PT STATED SHE HAS PAIN TO LOWER ABD. ASSESSED ABD AND PT HAD SOME PAIN WITH PALPITATION. PERFORMED BLADDER SCAN. PT HAD 945 OF URINE IN BLADDER. ENCOURAGED PT TO USE BSC. PT HAS PT IN ROOM HELPING PT GET ON BSC. PT HAS SPECIAL SHOE TO LEFT FOOT AND REG SHOE TO RT FOOT. PT HYPERVENTILATING ENCOURAGED PT TO SLOW BREATHING. PT HAS PAIN TO RT FOOT AND LOWER EXT. PT DRESSING TO LEFT GROIN IS INTACT AND TO CHEST. PT ALSO HAS X2 SMALL DRESSING UNDER LEFT BREAST. PT HAS DRESSING TO LEFT FOOT. PT HAD SMALL AMOUNT OF URINE, AND STOOL. AT BEDSIDE.
--- NOTE | 2018-12-16 09:44 | NUR ---
BLADDER SCANNED AGAIN, PT HAD 999+ IN BLADDER. PT UP WITH PHYSICAL THERAPY TO BATHROOM.
--- NOTE | 2018-12-16 10:00 | NUR ---
pt back up on acute rehab, working with ot this am "ok i am back, everything the same. going to be going to outpt rehab when dc. 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 manage own medication.
--- NOTE | 2018-12-16 11:00 | NUR ---
PT VOIDED 400ML OF URINE AND SMALL STOOL. OBTAINED URINE FOR UA.
--- NOTE | 2018-12-16 11:30 | NUR ---
PT UP WITH THERAPY TO EDILSON IN W/C NOTICED BLEEDING TO LEFT BARRON ULCER, PLACED MEPILEX DRESSING OVER BLEEDING AREA.
[2018-12-16 12:06] LABS: URINE BILIRUBIN NEGATIVE (Negative); URINE BLOOD 1+ (Negative); URINE CLARITY CLEAR; URINE COLOR YELLOW; URINE GLUCOSE-RANDOM* TRACE (Negative); URINE KETONES NEGATIVE (Negative); URINE LEUKOCYTES-REFLEX 1+ (Negative); URINE NITRITE-REFLEX NEGATIVE (Negative); URINE PROTEIN (DIPSTICK) TRACE (Negative)
[2018-12-16 12:13] LABS: SQUAMOUS 4-10 Moderate /LPF (0-3)
[2018-12-16 12:14] LABS: CASTS None Seen /LPF (None Seen); CRYSTALS None Seen /LPF (None Seen); URINE RBC 3-10 Few /HPF (0-2); URINE WBC-REFLEX 0-5 Rare /HPF (0-5)
--- NOTE | 2018-12-16 12:48 | NUR ---
Nutrition: pt seen due to consult related to wounds on rehab unit. Familiar with pt from acute admit. S/P CABG x 5 on 11/27. Has left great toe ulcer, left novak ulcer. BG 205-244 on carb controlled, heart healthy diet. A1C 6.6. PO 75-100% meals. Order for Glucerna BID, will decrease to once daily. Pt agrees. Class 3 obesity with BMI 244. Pt had denied need for dietary education on acute x 2. RD reiterated importance of protein foods for wound healing. RECOMMEND decrease calorie level to 1800 kcal and allow decaf items as requested on trays. Low nutrition risk.
--- NOTE | 2018-12-16 14:00 | NUR ---
PT BACK TO STOOL IN BATHROOM TO VOID. PT STATED SHE HAD MORE URINE OUTPUT AND ALSO FILLED STOOL WITH BM. PT STATED SHE FELT BETTER.
--- NOTE | 2018-12-16 16:01 | NUR ---
I have reviewed the documentation by RENETTA VALDIVIA from 12/16/18 to 12/16/18 and I concur with it. ISIDRO CARMONA, PT, DPT
--- NOTE | 2018-12-16 16:30 | NUR ---
CHANGED DRESSING UNDER LEFT BREAST. NO DRAINAGE NOTED.
[2018-12-16 20:44] VITALS: BP 145/33
--- NOTE | 2018-12-17 00:55 | NUR ---
PT ALERT AND ORIENTED X 4. AMB TO BR WITH WALKER AND ASSIST X 1 WITHOUT DIFFICULTY. CHEST DRESSING C/D/I. DRESSINGS TO LEFT GROIN AND THIGH C/D/I. 2+ LE EDEMA BILAT. PT VOIDING IN ADEQUATE AMTS. PT C/O PAIN IN RLE. OXYCODONE GIVEN X 2 SO FAR TONIGHT. BED ALARM ON FOR SAFETY. PT CHECKED ON HOURLY ROUNDS. SIGNIFICANT OTHER HERE DURING THE NIGHT.
[2018-12-17 07:47] VITALS: BP 161/60
--- NOTE | 2018-12-17 14:22 | NUR ---
ASSUMED CARE AT 0700. PATIENT IS ALERT AND ORIENTED X4. PATIENT JONES, GLOVE PARTS INSPECTOR ARE EQUAL. LUNGS ARE CLEAR AND DEMINISHED. ABD IS SOFT WITH BSX4. UP WITH ASSISST OF 1 WITH GAIT BELT AND WALKER. PATIENT HAS MIDLINE INCISION WITH SUTURES COVERED WITH ABD. PATIENT HAS DRAIN SITE UNDER HER LEFT BREAST AND LEFT CHEST, LEFT CALF, AND LEFT LOWER LEG AND LEFT BIG TOE. SITES CLEANED WITH WOUND PRODUCTION STATISTICAL CLERK AND OPTIFOAM DRESSINGS APPLIED TO ABOVE SITES. HAD BREAKFAST ON SIDE OF HER BED. FALL AND SAFETY PROTOCOLS IN PLACE. C/O PAIN IN HER LEFT LEG/RIGHT LEG AND FOOT. MEDICATED WITH PRN PAIN MED. CONTINUES TO PROGRESS TOWARDS D/C GOALS. WILL CONTINUE TO MONITER.
[2018-12-17 19:44] VITALS: BP 133/47
--- NOTE | 2018-12-18 00:57 | NUR ---
PT ALERT AND ORIENTED X 4. AMB TO BR WITH WALKER AND ASSIST X 1. DRESSINGS TO CHEST AND LEFT LEG C/D/I. 2+ LE EDEMA NOTED. VOIDING WITHOUT DIFFICULTY. PT C/O PAIN IN RIGHT LEG. OXYCODONE GIVEN ORDERED. BLOOD SUGAR 228 AT HS. INSULIN GIVEN ORDERED. BED ALARM ON FOR SAFETY. PT CHECKED ON HOURLY ROUNDS. HERE DURING THE NIGHT.
--- NOTE | 2018-12-18 07:57 | NUR ---
ASSUMED CARE AT 0700. PATIENT IS ALERT AND ORIENTED X4. PATIENT JONES, MANAGER ORDER ARE EQUAL. LUNGS ARE CLEAR. ABD IS SOFT WITH BSX4. STERNAL PRECAUTIONS, ABD INTACT. DRESSING CHANGES DONE TO HARVEST SITES. UP WITH SURGICAL SHOE ON LEFT FOOT. FALL AND SAFETY PROTOCOLS IN PLACE. C/O PAIN IN HER BACK AND INCISION SITES. MEDICATED WITH PRN PAIN MEDS. CONTINUES TO PROGESS TOWARDS D/C GOALS. WILL CONTINUE TO MONITER.
[2018-12-18 08:45] VITALS: BP 139/53
--- NOTE | 2018-12-18 13:59 | H ---
[facility] [place] [address] [place] [address] HISTORY AND PHYSICAL Name: OLMAN PICHARDO Room #: 515-P ADM IN M.R.#: [id number] Admission: 12/15/18 ������������������ Attend Phys: Vincent Dawson MD Discharge: ������������������ Date of : 63 Report #: [id number] THIS REPORT FOR: //name// CC: Vincent Pyle HISTORY OF PRESENT ILLNESS: This is a 53-year-old female who was originally admitted on inpatient rehabilitation unit after coronary artery bypass grafting. During her rehab stay, she had severe right lower extremity pain and obtained arterial Doppler showed severe peripheral arterial disease with femoral artery long segment occlusion. She went back to acute care for attempted angioplasty that was unsuccessful and was felt to be a chronic occlusion. Cardiothoracic Surgery followed the patient and recommends a fem-pop bypass, but they would like her to increase her strength and rehabilitation prior to the possible bypass. She has been readmitted to inpatient rehabilitation for further therapies. Today, the patient denies headache or dizziness. She denies visual changes. She denies chest pain. She does get short of air with activity. No productive cough. She denies abdominal pain or nausea. She is having difficulties urinating. She does have some dysuria and lower pelvic pressure/pain. Her bladder scan showed 900 mL this morning. She was able to urinate 50-100 mL and repeat bladder scan showed around 800. She continues to report right leg pain, especially when she has no shoes on. It is worse with activity. It starts in the foot and goes up her calf. She has numbness, tingling and other neuropathy symptoms, bilateral lower extremities. She has been wearing the left postop shoe. She is sleeping fair. Appetite is okay. PAST MEDICAL HISTORY: Diabetes, cardiomyopathy, peripheral arterial and peripheral vascular disease, left superficial femoral artery and popliteal arthrectomy with stent placement in August 2018, CHF, hypertension, hyperlipidemia, echo with an EF of 40% and mild mitral regurg, premorbid peripheral neuropathy. SOCIAL HISTORY: Premorbidly, the patient is living at home with her and son. She has 3 stairs to enter and then all living 1 level. She was independent with ADLs. Her was assisting her with showering mostly because she could not reach her backside. and her share the IADLs. She utilized no assistive device, premorbidly. 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 She does sit at a desk, but has to get up to push/pull cart around the office at times. She does report one fall earlier this year with no injury. ALLERGIES: No known drug allergies. MEDICATIONS: Iron 150 mg daily, MiraLax 17 grams daily, gentamicin topical daily, Colace 100 mg twice a day, Plavix 75 mg daily, Lyrica 75 mg twice a day, metoprolol 12.5 mg twice a day, melatonin 5 mg at bedtime, Humalog sliding scale a.c. and at bedtime, Pepcid 20 mg twice a day, cilostazol 100 mg twice a day, bisacodyl 10 mg p.r.n., atorvastatin 10 mg at bedtime, DuoNeb q. [address] [address] HISTORY AND PHYSICAL Name: OLMAN PICHARDO Room #: 515-P ADM IN M.R.#: [id number] Admission: 12/15/18 ������������������ Attend Phys: Vincent Dawson MD Discharge: ������������������ Date of : 63 Report #: [id number] awake, Percocet 1 tab q. 4 hours as needed pain. CODE STATUS: Full code. HABITS: She is a former tobacco smoker. No illicit drug use, no alcohol use. REVIEW OF SYSTEMS: Remainder of her 14-point review of systems is negative except as listed in HPI. PHYSICAL EXAMINATION: VITAL SIGNS: Blood pressure 169/53, respirations 20, pulse of 90, temperature 98.9, O2 sat 95% on room air. GENERAL: She is awake, alert. She is oriented x 4. She is in no acute distress. She does have a flat affect. HEAD: Normocephalic. EYES: EOMs are intact. No icterus. ENT: No sinus tenderness. NECK: No lymphadenopathy. CARDIAC: Regular rate and rhythm, S1, S2. CHEST: Lungs clear to auscultation bilaterally. No crackle, no wheeze. ABDOMEN: Bowel sounds are positive, soft, nontender. GENITOURINARY: Bladder is palpable. She has no CVA tenderness. EXTREMITIES: She has edema, right pedal edema. She has significant tenderness to very light touch on her right calf and foot. She has decreased range of motion of the ankle and foot due to the swelling and severe pain with movement. I cannot palpate her pulse. Her foot and leg is warm. Left foot incision on the calf is clean, dry and intact. She does have stiffness, but better range of motion on the left leg than the right. She has sternal precautions, so full upper body strength and range of motion not tested, but appears functional for daily tasks. Director Of Home Economics are equal. Sit to stand with max assist, min assist to ambulate 2 feet with a front wheel walker. Toileting is mod assist. Bed mobility is mod assist. SKIN: She has a sternal incision with a dressing that is clean, dry and intact. The wound VAC is off. NEUROLOGIC: Cranial nerves 2-12 grossly intact. LABORATORY DATA: From 12/16/2018, sodium 138, potassium 3.9, BUN 10, creatinine 0.7. WBC 7.5, hemoglobin 7.9, platelets 344. ASSESSMENT: 1. Severe coronary artery disease, status post coronary artery bypass graft x 5, 11/27/2018. 2. Right lower extremity femoral artery occlusion with severe peripheral arterial disease. 3. Medical complexity with generalized debilitation. 4. Acute blood loss anemia with history of transfusion. [facility] [address] [place] [address] HISTORY AND PHYSICAL Name: OLMAN PICHARDO Room #: 515-P [facility] IN ..#: [id number] Admission: 12/15/18 ������������������ Attend Phys: Vincent Dawson MD Discharge: ������������������ Date of : 63 Report #: [id number] 5. Premorbid peripheral neuropathy. 6. Type 2 diabetes. 7. Hypertension. 8. Obesity. 9. Hyperlipidemia. 10. Recent acute respiratory failure, resolved. 11. Urinary retention. PLAN: The patient has been admitted to [address] [place] [address] rehab for physical, occupational therapies. She will have her hospital consultants continue to follow her closely on the rehab unit. I have asked nursing to repeat bladder scan after they attempt to have her urinate again. If there is over 400 mL in the bladder, hospitalist services to be notified for further orders and nurses done UA with C and S at that time. The patient will have Social Work Services following for discharge planning needs. She will have a team conference today. Please see multiple orders. ��������������������������������������������� <ELECTRONICALLY SIGNED> ���������������������������������������� By: TL Sams ��������������������������������������������� 12/18/18 1359 [id number] TL Sams /nt
[2018-12-18 20:47] VITALS: BP 153/58
--- NOTE | 2018-12-19 03:02 | NUR ---
ASSUMED CARE OF PT @1900 PT ASSESSED AT START OF SHIFT A&OX4, C/O PAIN IN LOWER EXT OXYCODONE GIVEN SEE EMAR. AT BEDSIDE FOR THE NIGHT. DRESSING IN STERNUM, YPPER CHEST, LOWER LEGS AND BIG TOE INTACT. BLOOD SUGAR CHECKS FOR THE NIGHT AND INSULIN GIVEN. HOURLY ROUNDING DONE AND WILL CONT WITH POC TILL EOS
[2018-12-19 07:15] VITALS: BP 142/56
--- NOTE | 2018-12-19 19:39 | NUR ---
PATIENT ALERT AND ORIENTED WITH AT BEDSIDE OFF AND ON THROUGHOUT THE DAY. PATEINT COOPERATIVE WITH PLAN OF CARE AND HAD 2 LOOSE BM'S TODAY. DRESSING CHANGES ON SURGERY AND WOUNDS SITES. PATIENT TAKING PAIN MEDS COMPLAINING OF RIGHT LEG PAIN.
[2018-12-19 19:54] VITALS: BP 154/50
--- NOTE | 2018-12-20 05:49 | NUR ---
PATIENT ORIENTED X4. SLEEPY OR SLEEPING MOST OF NIGHT. C/O PAIN [id number]. MED GIVEN. AT BS. ACCUCHECK WAS 156, RECEIVED 3 UNITS OF LISPRO WELL 12UNITS OF LANTUS. DRESSING ON VARIOUS PARTS OF HER BODY AR INTACT. SLEPT MOST OF NIGHT.
[2018-12-20 07:30] VITALS: BP 146/66
[2018-12-20 20:49] VITALS: BP 148/56
--- NOTE | 2018-12-21 02:29 | NUR ---
PT ALERT AND ORIENTED X 4. AMB TO BR WITH WALKER AND ASSIST X 1. DRESSINGS TO CHEST AND LEFT LEG C/D/I. PT C/O PAIN IN BOTH LEGS/FEET. OXYCODONE GIVEN X 1 SO FAR TONIGHT. PT SLEEPING UPON REASSESSMENT. SPOUSE HERE DURING THE NIGHT. PT APPEARS TO BE SLEEPING ON HOURLY ROUNDS.
[2018-12-21 08:00] VITALS: BP 154/60
--- NOTE | 2018-12-21 13:38 | NUR ---
ASSUMED CARE OF PT AT 0715. PT IS A&OX4. IS ON ROOM AIR. REPORTS PAIN IN BILAT LE THAT IS BEING MANAGED WITH PAIN MEDS. DRSGS TO LLE CHANGED -THIGH, BARRON, & GREAT TOE. DRSG TO MID CHEST & 2 SITES UNDER LEFT BREAST REMOVED & IS WENDY. DR. CHUA & DR. HERNANDEZ NOTIFIED CONCERNING OPEN SITE TO LEFT THIGH. DR. HERNANDEZ WILL SEE PT TOMORROW. PT IS STABLE. SPOUSE AT BEDSIDE. PT IS UP WITH MADDIE ASSIST, GB, W TO BATHROOM. STAYS IN ROOMS FOR MEALS. LIKES TO SIT ON SIDE OF BED TO EAT. HAS ORTHO SHOES FOR LEFT FOTT. PT IS CURRENTLY IN BED. CALL LIGHT WITHIN REACH. LABS REVIEWED. WILL CONTINUE TO MONITOR.
--- NOTE | 2018-12-21 14:51 | NUR ---
ASSUMED CARE OF PT AT 1300. PT IS A&OX4 AND VITAL SIGNS ARE STABLE. ACCU CHECKS ACHS AND MANAGED WITH INSULIN AND PO MEDICAITON. PAIN MANAGED WITH PO MEDICAITONS. PATIENT'S ON UNIT AND WITH APPROVAL OF THIS NURSE ACCOMPANIED PT OFF UNIT THIS AFTERNOON. DRESSINGS CHANGED BY PREVIOUS NURSE ARE C/D/I. FALL PRECAUTIONS IN PLACE AND NURSING WILL CONTINUE TO MONITOR.
[2018-12-21 20:00] VITALS: BP 141/55
--- NOTE | 2018-12-22 02:49 | NUR ---
PT ASSESSMENT DONE AND VSS. MEDS GIVEN ORDERED AND WELL TOLERATED. FALL PRECAUTIONS IN PLACE. SLEEPING WELL. WILL CONTINUE TO MONITOR.
[2018-12-22 06:14] LABS: ABSOLUTE NEUTROPHILS 3.8 thou/uL (1.4-8.2); BASOPHILS 0.5 % (0.0-2.0); EOSINOPHILS 3.4 % (0.0-3.0); HEMOGLOBIN 8.2 gm/dL (12.0-15.0); LYMPHOCYTES 27.3 % (24.0-44.0); MCH 22.5 pg (26.0-34.0); MCHC 30.6 g/dL (28.0-37.0); MCV 73.6 fL (80.0-100.0); PLATELET COUNT 417 thou/uL (150-400); POLYS 60.8 % (36.0-66.0); RBC 3.67 mil/uL (4.20-5.00); RDW 21.5 % (10.5-14.5); WBC 6.3 thou/uL (4.0-11.0)
[2018-12-22 06:37] LABS: CREATININE 0.9 mg/dL (0.6-1.0); MAGNESIUM 1.8 mg/dL (1.8-2.4); POTASSIUM 3.6 mmol/L (3.5-5.1)
[2018-12-22 09:21] LABS: ANISOCYTOSIS 2+; HYPOCHROMASIA 2+; MICROCYTES 2+; PLATELET ESTIMATE NORMAL; POLYCHROMASIA 1+
[2018-12-22 09:22] LABS: POIKILOCYTOSIS SLIGHT
[2018-12-22 10:14] VITALS: BP 150/57
--- NOTE | 2018-12-22 10:50 | NUR ---
cm received voice message from pt insurance stated that is needs hh (sean damon, hemal izquierdo are in net work). cm passed on information to [facility] [place] and will pick hh later after team this week.
--- NOTE | 2018-12-22 11:09 | NUR ---
WOUND CONSULT; NOT COMPLETED; PER RN ARSH HeltonIS MANAGING.
--- NOTE | 2018-12-22 15:29 | NUR ---
Nutrition: Pt seen per followup. S/P CABG x 5 on 11/27. Also with L great toe and novak ulcers. BG much better controlled. Intake 75-100% of meals. Will D/C glucerna all together, pt agrees. Protein foods are encouraged. Low risk.
--- NOTE | 2018-12-22 15:47 | NUR ---
ASSUMED CARES AT 0700. PT ALERT AND ORIENTED*4. C/O LEFT LOWER EXTREMITY PAIN, PAIN MEDICATION ADMINISTERED ORDERED. VITALS REMAIN STABLE. WOUNDCARE COMPLETED TO CHEST INCISION AND LLE HARVEST SITES ORDERED. LEFT KNEE INCISION CLEANED AND DRESSING CHANGE, CONTINUES TO HAVE SMALL AMOUNTS OF DRAINAGE. STERNAL PRECAUTIONS MAINTAINED. PT UP WITH 1 MIN ASSIST, GB AND WALKER AND TOLERATED WELL. Q1H VISUAL CHECKS. CALL LIGHT WITHIN REACH. FALL PRECAUTIONS IN PLACE
--- NOTE | 2018-12-22 16:06 | NUR ---
I have reviewed the documentation by RENETTA VALDIVIA from 12/22/18 to 12/22/18 and I concur with it. ISIDRO CARMONA, PT, DPT
[2018-12-22 19:52] VITALS: BP 150/62
--- NOTE | 2018-12-23 00:55 | NUR ---
PT ALERT AND ORIENTED X 4. AMB TO BR WITH WALKER AND ASSIST X 1. DRESSINGS TO CHEST AND LEFT LEG C/D/I. BLOOD SUGAR 169 AT HS. INSULIN GIVEN ORDERED. PT CONTINUES TO CALL FOR PAIN MEDS Q4H. C/O PAIN IN FEET. OXYCODONE GIVEN ORDERED. HERE DURING THE NIGHT. PT APPEARS TO BE SLEEPING ON HOURLY ROUNDS.
[2018-12-23 07:45] VITALS: BP 144/55
--- NOTE | 2018-12-23 13:08 | NUR ---
team meeting, recommendation: cont work with therapy of adl, medication management with therapy, and stair. is working on getting hand rails and getting tube transfer bench. dc 20th [facility] ( pt, ot, nursing) and [facility]
--- NOTE | 2018-12-23 14:26 | NUR ---
AAOX4. FLAT AFFECT. SUPPORTIVE AT BEDSIDE. WOUNDS DRESSED ORDERED. WORKING WITH PT AND OT. APPETITE BRISK. MEDICATED FOR PAIN ALLOWED. WILL CONTINUE TO MONITOR CLOSELY.
--- NOTE | 2018-12-23 16:16 | NUR ---
I have reviewed the documentation by RENETTA VALDIVIA from 12/23/18 to 12/23/18 and I concur with it. ISIDRO CARMONA, PT, DPT
--- NOTE | 2018-12-23 16:41 | NUR ---
dp sent hh referral to [facility] for pt, ot and nursing
[2018-12-23 19:40] VITALS: BP 151/65
--- NOTE | 2018-12-24 03:22 | NUR ---
PATIENT ASSESSED. IS ALERT X 4. SKIN WARM AND DRY. RESP EVEN AND UNLABORED. UP WITH GAIT BELT AND WALKER X 1 PERSON ASSIST. MARSHA WELL. HAS A MIDSTERNAL DRESSING THAT IS DRY AND ONE UNDER LEFT BREAST THAT IS DRY AND INTACT.ALSO HAS A DRESSING IN HER INTERIOR LEFT KNEE, DRESSING DRY AND INTACT NO DRAINAGE NOTED FROM ANY OF THEM. NON IV SITE. STERNAL PRECAUTIONS NOTED. UP WITH 1 PERSON ASSIST WITH MINIMUM ASSIST. ON ROOM AIR. DENIES ANY SOA. PAIN MED GIVEN Q 4 HOURS FOR PAIN IN HER FEET. LAST BM WAS 12/23. TAKES DIET WELL. HAS A VERY FLAT AFFECT. AT BEDSIDE. CONT PLAN OF CARE WITH PAIN CONTROL. A DVT IN HER RIGHT LOWER EXTREMITY.
[2018-12-24 07:15] VITALS: BP 150/60
--- NOTE | 2018-12-24 12:07 | NUR ---
ortiz called [facility] to follow up on referral, they received referral on patient and Angela is working on it, Angela was not available but ortiz was told that Angela left vm for Ritika/[facility] nurse with questions. ORTIZ left Angela letting her know Ritika is out sick today and she can call Ap calvo here today if Ritika did not get back to her.
--- NOTE | 2018-12-24 15:10 | NUR ---
SW received call from Angela at [facility], who states they are able to accept pt on service when discharged. Discharge home is anticipated for Saturday, 12/26. Will need final discharge orders/summary faxed when available. Rehab CM to follow to assist as needed with discharge planning.
[2018-12-24 20:38] VITALS: BP 139/56
--- NOTE | 2018-12-24 20:40 | NUR ---
PATIENT ALERT AND ORIENTED WITH FLAT AFFECT WITH AT BEDSIDE. SHE STATES PAIN IN FEET AND ASKS FOR PERCOCET PRN Q4. DRESSING CHANGES COMPLETED AND PATIENT COOPERATIVE WITH POC.
--- NOTE | 2018-12-24 20:56 | NUR ---
ASSEMENT COMPLETED, HRRR, LUNGS CTA, ABD NORMOACTIVE X 4 Q REPORTS A ABM THIS EVENING LARGE FORMED.
--- NOTE | 2018-12-25 01:59 | NUR ---
PT REQUESTED PAIN MEDS @ 0145. OXY 5 MG PROVIDED FOR PS 5/10 PAIN IN THE FEET BILAT. AT BEDSIDE. PT CONTINUES WITH A FLAT AFFECT AND POOR EYE CONTACT. BED IN LOW POSITION WITH CALL LIGHT IN REACH. WILL CONTINUE TO MONITOR.
[2018-12-25 10:05] VITALS: BP 149/69
--- NOTE | 2018-12-25 11:29 | H ---
[facility] [place] [address] HISTORY AND PHYSICAL Name: OLMAN PICHARDO Room #: 515-P ADM IN M.R.#: [id number] Admission: 12/15/18 ������������������ Attend Phys: Vincent Dawson MD Discharge: ������������������ Date of : 63 Report #: [id number] THIS REPORT FOR: //name// CC: Vincent Pyle DATE OF SERVICE: 12/15/2018 HISTORY AND PHYSICAL ADDENDUM AND POST-ADMISSION PHYSICIAN EVALUATION HISTORY OF PRESENT ILLNESS: Please see my prior dictations as well as the fully dictated history and physical. I agree with the findings as noted. She has now been readmitted for acute in-hospital inpatient rehabilitation. Pain is overall a little better. She has seemed a little more motivated and is amenable to trying to get up and work on improving her functional independence and strength and endurance. PHYSICAL EXAMINATION: VITAL SIGNS: Her temperature is 98.9, pulse 90, respirations 20, blood pressure 169/53. CHEST: Sounded clear. CARDIOVASCULAR: Regular rate and rhythm. ABDOMEN: Bowel sounds positive, nontender. GENITOURINARY AND RECTAL: Deferred. EXTREMITIES: Continues to have significant tenderness to light touch, right calf and foot. Decreased range of motion as before. Unable to palpate her pulse, foot and leg appear to be reasonably warm. Left foot incision clean, dry and intact. She does have the sternal precautions. She did get up and transfer with mod assist today and did ambulate a short distance with a front-wheeled walker. She continues with the sternal precautions. ASSESSMENT: 1. Severe coronary artery disease, status post coronary artery bypass graft x 5, 11/27/2018. 2. Right lower extremity femoral artery occlusion with severe peripheral arterial disease. 3. Medical complex with generalized debilitation. 4. Acute blood loss anemia with history of transfusion. 5. Premorbid peripheral neuropathy. 6. Type 2 diabetes mellitus. 7. Hypertension. 8. Obesity. 9. Hyperlipidemia. 10. Recent acute respiratory failure, resolved. 11. Urinary retention. [facility] [address] [place] [address] HISTORY AND PHYSICAL Name: OLMAN PICHARDO Room #: 515- ADM IN M.R.#: [id number] Admission: 12/15/18 ������������������ Attend Phys: Vincent Dawson MD Discharge: ������������������ Date of : 63 Report #: [id number] PLAN: From a postadmission physician evaluation perspective, there are no relevant changes since the preadmission screening. Please see the noted review of prior and current medical and functional conditions and comorbidities. Please see the patient's previous and current functional status. As far as risk of complications, the patient does have multiple medical comorbidities as noted above. Initial plan of care involves the interdisciplinary acute inpatient rehabilitation program with goal of maximizing her functional independence, so she can hopefully return back to her prior living situation. Measurable functional goals would be for the patient to become modified independent with transfers, mobility, ADLs, so she can return back to the home setting. Prognosis is reasonably good. Estimated length of stay is probably in the area of 10 days. We will need to see how she does in her therapies and go from there. Team conference to be held today. Potential barriers would include her multiple medical comorbidities, her significant vascular disease and her decreased function. ��������������������������������������������� <ELECTRONICALLY SIGNED> ���������������������������������������� By: Vincent Dawson MD ��������������������������������������������� 12/25/18 1129 [id number] Vincent Dawson MD /PMT
--- NOTE | 2018-12-25 11:31 | PLAN ---
[facility] [place] [address] REHAB UNIT PLAN OF CARE Name: OLMAN PICHARDO Room #: 515-P ADM IN M.R.#: [id number] Admission: 12/15/18 ������������������ Attend Phys: Vincent Dawson MD Discharge: ������������������ Date of : 63 Report #: [id number] THIS REPORT FOR: //name// CC: Vincent Pyle DATE OF SERVICE: 12/17/2018 PROGRESS NOTE/OVERALL PLAN OF CARE SUBJECTIVE: The patient was seen back in followup. She has been afebrile. She has an ABD covering her midline incision. Pain appears to be overall improving. She has been working in therapies and has been mod assist with sit to stand. She has been able to ambulate up to 35 feet with a front-wheeled walker. In occupational therapy, lower body dressing has been mod assist, upper body has been in supervision. ASSESSMENT: 1. Severe coronary artery disease, status post coronary artery bypass graft, 11/27/2018. 2. Medical complexity with generalized debilitation. 3. Right lower extremity femoral artery occlusion with severe peripheral arterial disease. 4. Acute blood loss anemia. 5. Premorbid peripheral neuropathy. 6. Acute respiratory failure, resolved. 7. Type 2 diabetes mellitus. 8. Hypertension. 9. Obesity. 10. Hyperlipidemia. PLAN: The overall plan of care is based on the preadmission screen, post-admission physician evaluation and information garnered from therapy assessments. 1. Estimated length of stay is probably going to be at least 7-10 days, pending progress. 2. Medical prognosis is reasonably good. 3. Anticipated interventions includes the interdisciplinary acute inpatient rehabilitation program. 4. Anticipated functional outcomes would be for the patient to become modified independent with transfers, mobility and ADLs, so she can hopefully return back to the home setting. 5. Discharge destination would be back home with her . 6. Expected therapy by discipline includes PT and OT 1-1/2 hours per day each [facility] [address] [place] [address] REHAB UNIT PLAN OF CARE Name: OLMAN PICHARDO Room #: 515-P [facility] IN .R.#: [id number] Admission: 12/15/18 ������������������ Attend Phys: Vincent Dawson MD Discharge: ������������������ Date of : 63 Report #: [id number] five days a week throughout the duration of the acute inpatient rehabilitation stay. ��������������������������������������������� <ELECTRONICALLY SIGNED> ���������������������������������������� By: Vincent Dawson MD ��������������������������������������������� 12/25/18 1131 1217 2316 Vincent Dawson MD /[facility]
--- NOTE | 2018-12-25 11:32 | NUR ---
ASSUMED CARE AT 0700 THIS MORNING. PT. SITTING ON THE SIDE OF HER BED SO SHE COULD EAT BREAKFAST. IN CHAIR AT BEDSIDE. PT. QUIET AND SUBDUED. SHE PRESENTS WITH A FLAT AFFECT. SHE HAD HER PAIN PILL JUST BEFORE THE SHIFT BEGAN. SHE REPORTS THAT HER NEUROPATHY PAIN IS NORMALLY A 5 TO 6 IN HER FEET, LEGS. AFTER THE PAIN MEDICATION SHE STATES HER PAIN IS A 4 TO 5. SHE DENIES THE PAIN MEDICATION DOES MUCH CARE BUT SAYS IT JUST GETS WORSE WITHOUT ANY MEDICATION FOR HER FEET. LEGS WERE SENSITIVE TO TOOUCH WHEN ASSESSED. LUNGS CTA, HRR. ABDOMEN SOFT. SHE REPORTED SHE HAD A SOFT BM THIS MORNNING. PT. TOOK A SHOWER AND TOOK OFF BANDAGES. BANDAGES REPLACED 1 HOUR AFTER SHOWER.
--- NOTE | 2018-12-25 12:30 | NUR ---
DISCHARGE PLANNING. PATIENT DISCHARGING TO HOME WITH [facility]. PATIENT WILL NEED WALKER FOR HOME USE. CLINCALS AND RX FOR WALKER FAXED TO ANTONETTE STEARNS. CALL PLACED TO DARYN TO NOTIFY. FOLLOWING.
[2018-12-25] MEDS ORDERED: METFORMIN HCL500 MG PO (14:02)
[2018-12-25] MEDS ORDERED: CYCLOBENZAPRINE5 MG PO (14:02)
[2018-12-25] MEDS ORDERED: PLAVIX 75 MG TA75 M1 PO (14:02)
[2018-12-25] MEDS ORDERED: CILOSTAZOL 100100 M1 PO (14:02)
[2018-12-25] MEDS ORDERED: LANTUS100 UNIT/M SUBQ (14:02)
--- NOTE | 2018-12-25 14:31 | NUR ---
cm team to check with grace and see if fww can be deliver today rt pt dc by 10am tomorrow. pt family will transport her home.
--- NOTE | 2018-12-25 15:03 | NUR ---
I have reviewed the documentation by RENETTA VALDIVIA from 12/25/18 to 12/25/18 and I concur with it. ISIDRO CARMONA, PT, DPT
[2018-12-25 19:34] VITALS: BP 152/57
[2018-12-26] MEDS ORDERED: VITAMIN D2000 UNIT PO (07:32)
[2018-12-26 07:55] VITALS: BP 152/57
[2018-12-26] MEDS ORDERED: COZAAR 25 MG TA25 M1 PO (09:35)
[2018-12-26] MEDS ORDERED: LASIX 40 MG TAB40 M2 PO (09:35)
[2018-12-26 10:32] VITALS: BP 152/57
--- NOTE | 2018-12-26 10:58 | NUR ---
PT ALERT AND ORIENTED TIMES FOUR. VSS, 100%RA. PT C/O PAIN PRN PAIN MEDICATIONS GIVEN WITH GOOD RELEIF. CHEST AND LEFT LEG DRESSING CHANGED THIS MORNING. PT UP TO CHAIR. PT TOLERATES MEDS AND MEALS. PT AT BEDSIDE. PLAN TO DISCHARGE HOME TODAY.
--- NOTE | 2018-12-29 07:13 | HC ---
[facility] [place] [address] CONSULTATION Name: OLMAN PICHARDO Room #: 515-P [facility] IN M.R.#: [id number] Admission: 12/15/18 ������������������ Attend Phys: Vincent Dawson MD Discharge: 12/26/18 ������������������ Date of : 63 Report #: [id number] THIS REPORT FOR: //name// CC: Vincent Pyle DATE OF SERVICE: 12/20/2018 NEUROBEHAVIORAL STATUS EXAMINATION ATTENDING PHYSICIAN: Vincent Dawson MD HEMODIALYSIS TECHNICIAN: Ricardo Maldonado, PhD CLINICAL PRESENTATION: The patient is a 53-year-old female admitted to the rehab unit following a coronary artery bypass grafting. During her rehab stay, she developed a severe right lower extremity pain and an arterial Doppler revealed severe peripheral artery disease and femoral artery long segment occlusion. The patient was then transferred to acute care for an attempted angioplasty. It was unsuccessful and felt to be a chronic occlusion. Cardiothoracic Surgery is reported to have recommended a fem-pop bypass, however, improving strength and endurance prior to the procedure was recommended. The assessment on her admission to the rehab unit includes severe coronary artery disease status post coronary artery bypass graft x 5, right lower extremity femoral artery occlusion with severe peripheral vascular disease, medical complexity with generalized debility, acute blood loss with history of transfusion, premorbid peripheral neuropathy, type 2 diabetes, hypertension, obesity, hyperlipidemia, recent respiratory failure resolved and urinary retention. A complete description of her medical condition and history can be found in her medical record. Neuropsychological consultation was requested to provide assistance in the assessment of cognitive and emotional status and to provide recommendations and services. Prior to this admission and recent deterioration in her medical condition, she was working for the [employer]. The patient is a high school graduate and is with 2 children. She does not report a prior history of treatment for depression or anxiety. The patient was independent with all instrumental and basic activities of daily living. TECHNIQUES UTILIZED: Clinical interview, review of medical records, staff consultation and behavioral observation, mini mental status exam 2 standard version and verbal fluency assessment and clock drawing. EXAMINATION FINDINGS: The patient was alert and oriented during the [facility] [address] [place] [address] CONSULTATION Name: OLMAN PICHARDO Room #: 515-P [facility] IN M.R.#: [id number] Admission: 12/15/18 ������������������ Attend Phys: Vincent Dawson MD Discharge: 12/26/18 ������������������ Date of : 63 Report #: [id number] assessment. She was able to describe the reason for her hospitalization; however, her speech was at very low volume, very slow and deliberate. Decreased speed of processing is suggested from her slow rate of speech. She does not report auditory or visual hallucinations or suicidal ideation. There is no evidence of aphasia. She reports concern about the difficulty in straightening her left leg. The patient reports symptoms to include anxiety, depression, sleep disturbance from pain, decreased appetite, fatigue and tiredness and variability in concentration and word finding. She does not describe difficulty with her memory. Performance on the MMSE 2 brief version is within normal limits with a raw score of 14 of 16. The patient was 4/5 for orientation to time and 2/3 for immediate recall of 3 items after a brief time delay and distraction. Performance on the MMSE 2 standard version was within normal limits with a raw score of 28/30. She was 5/5 for serial sevens, 2/2 for naming, 3/3 for comprehension. She could read and follow single command and accurately copy a sentence. Clock drawings within normal limits. Verbal fluency assessment suggests mild to moderate deficits in letter fluency with a raw score of 17, T score of 36, which is at the 8th percentile. Brief assessment of category fluency was at the 2nd percentile with a T score of 29. Brief abstract reasoning test was 3/8 suggesting deficits. The patient appears to be presenting with decreased speed of processing and variability in verbal fluency and higher level of abstract reasoning. Mild neurocognitive disorder is suggested. The patient's affect is depressed. DIAGNOSTIC IMPRESSION: Mild neurocognitive disorder, unspecified, without behavior disorder. Unspecified depressive disorder with anxiety. RECOMMENDATIONS: The patient may benefit from the use of an antidepressant to assist in the management of depression. Verbal praise and compliments about participation in therapies along with assistance in the direction of her attention toward strengths and resources that remain following this medical event. Contributing to variability in cognition may be the severity of depressed mood. However, followup neuropsych assessment may be of benefit if decreased cognition continues. [address] [address] CONSULTATION Name: OLMAN PICHARDO Room #: 515-P [facility] IN M.R.#: [id number] Admission: 12/15/18 ������������������ Attend Phys: Vincent Dawson MD Discharge: 12/26/18 ������������������ Date of : 63 Report #: [id number] Thank you very much for allowing me to provide the consultation on this patient. ��������������������������������������������� <ELECTRONICALLY SIGNED> ���������������������������������������� By: Ricardo Maldonado, PhD ��������������������������������������������� 12/29/18 0713 1704 2316 Ricardo Maldonado, PhD /nt
== END 2018-12-26 11:11 | disposition home health service (06) | DRG 302 ==
PROVIDERS: Nurse Practitioner; Nurse Practitioner Family; ADMIT Physical Medicine & Rehabilitation
DX: I25.10 Atherosclerotic heart disease of native coronary artery without angina pectoris (principal); J96.01 Acute respiratory failure with hypoxia; D62 Acute posthemorrhagic anemia; N39.0 Urinary tract infection, site not specified; L76.34 Postprocedural seroma of skin and subcutaneous tissue following other procedure; Z68.41 Body mass index [BMI] 40.0-44.9, adult; I42.9 Cardiomyopathy, unspecified; R53.81 Other malaise; E11.51 Type 2 diabetes mellitus with diabetic peripheral angiopathy without gangrene; E11.42 Type 2 diabetes mellitus with diabetic polyneuropathy; E66.9 Obesity, unspecified; E78.5 Hyperlipidemia, unspecified; I11.0 Hypertensive heart disease with heart failure; I50.9 Heart failure, unspecified; R33.9 Retention of urine, unspecified; G31.84 Mild cognitive impairment of uncertain or unknown etiology; F41.8 Other specified anxiety disorders; K59.00 Constipation, unspecified; M62.838 Other muscle spasm; B96.20 Unspecified Escherichia coli [E. coli] as the cause of diseases classified elsewhere; Y83.8 Other surgical procedures as the cause of abnormal reaction of the patient, or of later complication, without mention of misadventure at the time of the procedure; Z95.1 Presence of aortocoronary bypass graft; Z95.5 Presence of coronary angioplasty implant and graft; Z79.899 Other long term (current) drug therapy; Z79.02 Long term (current) use of antithrombotics/antiplatelets; Z79.84 Long term (current) use of oral hypoglycemic drugs; Y92.89 Other specified places as the place of occurrence of the external cause
CPT/HCPCS: 10112

== ENCOUNTER 2018-12-30 17:47 | Emergency (ER) | payer OTHER ==
[~2018-12-30] VITALS: Ht 165.1 cm; Wt 104.3 kg
[~2018-12-30 17:47] MED LIST changes: +COZAAR 25 MG TA25 M1 PO; +CYCLOBENZAPRINE5 MG PO; +LANTUS100 UNIT/M SUBQ; +METFORMIN HCL500 MG PO; +VITAMIN D2000 UNIT PO
[2018-12-30 21:33] VITALS: BP 177/69
== END 2018-12-30 21:33 | disposition home or self-care (01) ==
LOC: ER 17:47
DX: I97.611 Postprocedural hemorrhage of a circulatory system organ or structure following cardiac bypass (principal); G62.9 Polyneuropathy, unspecified; G89.18 Other acute postprocedural pain; I73.9 Peripheral vascular disease, unspecified; I10 Essential (primary) hypertension; I42.9 Cardiomyopathy, unspecified; E78.00 Pure hypercholesterolemia, unspecified; E11.9 Type 2 diabetes mellitus without complications; E66.9 Obesity, unspecified; Z68.38 Body mass index [BMI] 38.0-38.9, adult; Z86.2 Personal history of diseases of the blood and blood-forming organs and certain disorders involving the immune mechanism; Z79.4 Long term (current) use of insulin